=== PATIENT | male | born 1990 | race Caucasian/White ===

== ENCOUNTER 2016-10-23 14:36 | Inpatient (IN) ==
[2016-10-23] MEDS ORDERED: Naloxone 0.4 MG/ML INJ IVP ONE (14:38)
[2016-10-23] MEDS ORDERED: 0.9 % Sodium Chloride 1,000 ML IVC ONE (14:38)
[2016-10-23 14:58] LABS: Basophils % 0.7 %; Eosinophils # 0.1 K/mcL (0.0-0.6); Eosinophils % 1.7 %; Hematocrit 41.6 % (37.5-50.1); Hemoglobin 14.2 g/dL (12.9-16.9); Immature Granulocytes % 0.2 % (0-4); Lymphocytes % 34.3 %; Mean Corpuscular HGB Conc 34.1 g/dL (31.6-35.5); Mean Corpuscular Hemoglobin 31.9 pg (28.0-33.3); Mean Corpuscular Volume 93.5 fL (83.0-100.0); Mean Platelet Volume 9.9 fL (9.4-12.4); Monocytes # 0.6 K/mcL (0.0-1.3); Monocytes % 9.7 %; Neutrophils # 3.1 K/mcL (1.6-8.9); Platelet Count 190 K/mcL (140-400); Red Blood Count 4.45 M/mcL (4.19-5.50); Red Cell Distribution Width 12.6 % (11.5-14.5); Segmented Neutrophils % 53.4 %
[2016-10-23] MEDS ORDERED: Ammonia Inhalant AMPUL ONE (15:08)
[2016-10-23] MEDS ORDERED: *HR* Etomidate 20 MG/10 ML AMPUL IVP ONE (15:14)
[2016-10-23] MEDS ORDERED: *HR* Rocuronium Bromide 50 MG/5 ML VIAL IVP ONE (15:14)
[2016-10-23 15:20] LABS: Acetaminophen < 1.0 mcg/mL (10-30); Alanine Aminotransferase 26 Units/L (0-55); Albumin 3.8 g/dL (3.5-5.0); Albumin/Globulin Ratio 1.1 (1.1-2.2); Alkaline Phosphatase 56 Units/L (38-126); Aspartate Amino Transferase 28 Units/L (5-34); BUN/Creatinine Ratio 20 (6-26); Bilirubin,Direct 0.1 mg/dL (0.0-0.5); Bilirubin,Indirect 0.1 mg/dL (0.0-1.2); Bilirubin,Total 0.2 mg/dL (0.2-1.2); Blood Urea Nitrogen 14 mg/dL (8-26); Calcium 9.2 mg/dL (8.6-10.8); Carbon Dioxide 25 mEq/L (19-29); Chloride 105 mEq/L (98-109); Ethanol < 10 mg/dL (0-10); Globulin 3.6 g/dL (2.4-3.5); Glucose 97 mg/dL (70-99); Osmolality,Calculated 290 (280-300); Potassium 4.2 mEq/L (3.5-4.5); Salicylate < 5.0 mg/dL (15-30); Sodium 140 mEq/L (136-145); Total Protein 7.4 g/dL (6.0-8.3); eGFR For African Americans > 60 (> 60); eGFR For Non-African Americans > 60 (> 60)
[2016-10-23 16:29] LABS: Amphetamine Screen,Urine Negative ng/mL (Cutoff=1000); Barbiturate Screen,Urine Negative ng/mL (Cutoff=200); Benzodiazepines Screen,Urine Positive ng/mL (Cutoff=200); Cannabinoid Screen,Urine Negative ng/mL (Cutoff = 50); Cocaine Screen,Urine Negative ng/mL (Cutoff= 300); Opiate Screen,Urine Negative ng/mL (Cutoff=300); Phencyclidine Screen,Urine Negative ng/mL (Cutoff=25)
[2016-10-23 16:41] LABS: Bilirubin,Urine Negative (Negative); Blood,Urine Small (Negative); Clarity,Urine Clear (Clear); Color,Urine Yellow (Yellow); Glucose,Urine (UA) Normal (Normal); Ketones,Urine Negative (Negative); Leukocyte Esterase,Urine Negative (Negative); Nitrite,Urine Negative (Negative); Protein,Urine Negative (Neg-Trace); Specific Gravity,Urine 1.025 (1.010-1.025); Urobilinogen,Urine Normal (Normal)
[2016-10-23 16:42] LABS: Bacteria,Urine None Seen per hpf (None-Few); Hyaline Casts,Urine None Seen per lpf (None-Few); Squamous Epithelial Cell,Urine Moderate per lpf (None-Few); WBC,Urine 0-3 per hpf (0-3)
--- NOTE | 2016-10-23 17:06 | Emergency Department Note ---
Disposition Clinical Impression: Overdose Qualifiers: Encounter type: initial encounter Injury intent: undetermined intent Qualified Code(s): T50.904A - Poisoning by unspecified drugs, medicaments and biological substances, undetermined, initial encounter Disposition: Admitted As Inpatient Condition: Critical General Adult HPI - General Chief complaint: ED Overdose Stated complaint: OVERDOSE Time Seen by Provider: 10/23/16 14:38 Source: EMS Limitations: no limitations Nursing Notes Reviewed: Yes Vital Signs Reviewed: Yes - History of Present Illness HPI Narrative: This is a 18-year-old male with a history of neck pain who is on chronic pain control with Suboxone. He apparently today was found intoxicated, possibly ingested an unknown quantity of an unknown substance. On arrival he is found responsive to painful stimuli only, lethargic, appears intoxicated. No external signs of trauma. Pain Scale: 6 - Related Data Allergies Allergy/AdvReac Type Severity Reaction Status Date / Time No Known Allergies Allergy Verified 05/14/15 19:35 All systems ED: reviewed and negative except as stated. Past Medical History - Past Medical History Medical history: Reports: no medical history, migraine Surgical history: Reports: no surgical history Psychiatric history: Reports: anxiety, bipolar, depression - Social History Smoking Status: Current every day smoker Smokeless Tobacco Status: No Alcohol use: Reports: none Drug use: Reports: none Physical Exam Difficult to arouse alert to person Pupils are equal reactive to light, extraocular muscle movements are normal Mucous membranes are moist TMs are clear bilaterally Cardiovascular exam shows regular rate and rhythm there is no murmur, rub, gallop Pulmonary exam shows lungs clear and equal bilaterally there is good inspiratory effort Abdomen is soft and nontender Extremities are without clubbing, cyanosis, edema No focal neurological deficit - General Limitations: no limitations General appearance: alert Course Vital Signs Temperature 98.1 F 10/23/16 14:37 Pulse Rate 88 10/23/16 14:37 Respiratory Rate 18 10/23/16 14:37 Blood Pressure 119/84 10/23/16 14:37 O2 Sat by Pulse Oximetry 97 10/23/16 14:37 Temperature 98.1 F 10/23/16 14:37 Pulse Rate 91 10/23/16 16:48 Respiratory Rate 18 10/23/16 16:48 Blood Pressure 110/97 10/23/16 16:48 O2 Sat by Pulse Oximetry 99 10/23/16 16:48 Oxygen Delivery Oxygen Delivery Room Air Medical Decision Making - MDM Narrative Medical decision making narrative: EKG shows normal sinus rhythm, normal axis, normal intervals Patient appears to be polysubstance overdose. Responded slowly to Narcan administration. He is alert but intermittently somnolent and requires additional dosing of Narcan. Given his ongoing somnolence will admit to intensive care unit. Of note his family member was here and appeared intoxicated as well with subsequent arrest. Plan to admit to intensive care unit, discussed case with environmental health and safety leader as well as hospitalist team. - Medical Records Medical records reviewed: Yes I reviewed the patient's medical records. - Lab Data Lab results reviewed: Yes I reviewed the patient's lab results. Result diagrams: 10/23/16 14:51 10/23/16 14:51 Lab Results 10/23/16 10/23/16 10/23/16 Range/Units 14:51 14:51 15:50 WBC 5.8 (4.3-11.1) K/mcL RBC 4.45 (4.19-5.50) M/mcL Hgb 14.2 (12.9-16.9) g/dL Hct 41.6 (37.5-50.1) % MCV 93.5 (83.0-100.0) fL MCH 31.9 (28.0-33.3) pg MCHC 34.1 (31.6-35.5) g/dL RDW 12.6 (11.5-14.5) % Plt Count 190 (140-400) K/mcL MPV 9.9 (9.4-12.4) fL Immature Gran % 0.2 (0-4) % Seg Neutrophils % 53.4 % Lymphocytes % 34.3 % Monocytes % 9.7 % Eosinophils % 1.7 % Basophils % 0.7 % Neutrophils # 3.1 (1.6-8.9) K/mcL Lymphocytes # 2.0 (0.6-4.6) K/mcL Monocytes # 0.6 (0.0-1.3) K/mcL Eosinophils # 0.1 (0.0-0.6) K/mcL Basophils # 0.0 (0.0-0.2) K/mcL Sodium 140 (136-145) mEq/L Potassium 4.2 (3.5-4.5) mEq/L Chloride 105 (98-109) mEq/L Carbon Dioxide 25 (19-29) mEq/L BUN 14 (8-26) mg/dL Creatinine 0.70 L (0.72-1.25) mg/dL Est GFR ( Amer) > 60 (> 60) Est GFR (Non-Af Amer) > 60 (> 60) BUN/Creatinine Ratio 20 (6-26) Glucose 97 (70-99) mg/dL Calculated Osmolality 290 (280-300) Calcium 9.2 (8.6-10.8) mg/dL Total Bilirubin 0.2 (0.2-1.2) mg/dL Direct Bilirubin 0.1 (0.0-0.5) mg/dL Indirect Bilirubin 0.1 (0.0-1.2) mg/dL AST 28 (5-34) Units/L ALT 26 (0-55) Units/L Alkaline Phosphatase 56 (38-126) Units/L Serum Total Protein 7.4 (6.0-8.3) g/dL Albumin 3.8 (3.5-5.0) g/dL Globulin 3.6 H (2.4-3.5) g/dL Albumin/Globulin Ratio 1.1 (1.1-2.2) Urine Color (Yellow) Urine Clarity (Clear) Urine pH (5.0-8.0) pH Units Ur Specific [place] (1.010-1.025) Urine Protein (Neg-Trace) mg/dL Urine Glucose (UA) (Normal) mg/dL Urine Ketones (Negative) mg/dL Urine Blood (Negative) Urine Nitrite (Negative) Urine Bilirubin (Negative) Urine Urobilinogen (Normal) mg/dL Ur Leukocyte Esterase (Negative) Urine Microscopic RBC (0-3) per hpf Urine Microscopic WBC (0-3) per hpf Ur Squamous Epith Cells (None-Few) per lpf Urine Bacteria (None-Few) per hpf Hyaline Casts (None-Few) per lpf Salicylates < 5.0 L (15-30) mg/dL Urine Opiates Screen Negative (Hpljgv=224) ng/mL Acetaminophen < 1.0 L (10-30) mcg/mL Ur Barbiturates Screen Negative (Knarez=278) ng/mL Ur Phencyclidine Scrn Negative (Cutoff=25) ng/mL Ur Amphetamines Screen Negative (Eicwbs=2654) ng/mL U Benzodiazepines Scrn Positive H (Tmjxbn=866) ng/mL Urine Cocaine Screen Negative (Cutoff= 300) ng/mL U Marijuana (THC) Screen Negative (Cutoff = 50) ng/mL Ethyl Alcohol < 10 (0-10) mg/dL 10/23/16 Range/Units 16:07 WBC (4.3-11.1) K/mcL RBC (4.19-5.50) M/mcL Hgb (12.9-16.9) g/dL Hct (37.5-50.1) % MCV (83.0-100.0) fL MCH (28.0-33.3) pg MCHC (31.6-35.5) g/dL RDW (11.5-14.5) % Plt Count (140-400) K/mcL MPV (9.4-12.4) fL Immature Gran % (0-4) % Seg Neutrophils % % Lymphocytes % % Monocytes % % Eosinophils % % Basophils % % Neutrophils # (1.6-8.9) K/mcL Lymphocytes # (0.6-4.6) K/mcL Monocytes # (0.0-1.3) K/mcL Eosinophils # (0.0-0.6) K/mcL Basophils # (0.0-0.2) K/mcL Sodium (136-145) mEq/L Potassium (3.5-4.5) mEq/L Chloride (98-109) mEq/L Carbon Dioxide (19-29) mEq/L BUN (8-26) mg/dL Creatinine (0.72-1.25) mg/dL Est GFR ( Amer) (> 60) Est GFR (Non-Af Amer) (> 60) BUN/Creatinine Ratio (6-26) Glucose (70-99) mg/dL Calculated Osmolality (280-300) Calcium (8.6-10.8) mg/dL Total Bilirubin (0.2-1.2) mg/dL Direct Bilirubin (0.0-0.5) mg/dL Indirect Bilirubin (0.0-1.2) mg/dL AST (5-34) Units/L ALT (0-55) Units/L Alkaline Phosphatase (38-126) Units/L Serum Total Protein (6.0-8.3) g/dL Albumin (3.5-5.0) g/dL Globulin (2.4-3.5) g/dL Albumin/Globulin Ratio (1.1-2.2) Urine Color Yellow (Yellow) Urine Clarity Clear (Clear) Urine pH 6.0 (5.0-8.0) pH Units Ur Specific [place] 1.025 (1.010-1.025) Urine Protein Negative (Neg-Trace) mg/dL Urine Glucose (UA) Normal (Normal) mg/dL Urine Ketones Negative (Negative) mg/dL Urine Blood Small H (Negative) Urine Nitrite Negative (Negative) Urine Bilirubin Negative (Negative) Urine Urobilinogen Normal (Normal) mg/dL Ur Leukocyte Esterase Negative (Negative) Urine Microscopic RBC 5-15 H (0-3) per hpf Urine Microscopic WBC 0-3 (0-3) per hpf Ur Squamous Epith Cells Moderate H (None-Few) per lpf Urine Bacteria None Seen (None-Few) per hpf Hyaline Casts None Seen (None-Few) per lpf Salicylates (15-30) mg/dL Urine Opiates Screen (Uebwjf=770) ng/mL Acetaminophen (10-30) mcg/mL Ur Barbiturates Screen (Hubsdm=336) ng/mL Ur Phencyclidine Scrn (Cutoff=25) ng/mL Ur Amphetamines Screen (Ylqcku=6809) ng/mL U Benzodiazepines Scrn (Lzshhy=314) ng/mL Urine Cocaine Screen (Cutoff= 300) ng/mL U Marijuana (THC) Screen (Cutoff = 50) ng/mL Ethyl Alcohol (0-10) mg/dL Critical Care Time Critical Care Time: Yes Total Critical Care Time: 62 Attestation: I spent a total of 62 minutes providing for the acute care of this polysubstance overdose with respiratory difficulty. He required ongoing monitoring, critical care, had high potential for life-threatening decompensation and deterioration.
[2016-10-23] MEDS ORDERED: Naloxone 0.4 MG/ML INJ IVP PRN (17:22)
[2016-10-23] MEDS ORDERED: Ondansetron 4 MG/2 ML VIAL IVP PRN (17:22)
[2016-10-23] MEDS ORDERED: 0.9 % Sodium Chloride 1,000 ML IVC SCH (17:30)
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
[2016-10-23] MEDS: 0.9 % Sodium Chloride 1,000 ML IVC SCH ×2 (18:34→21:10)
[2016-10-23] MEDS ORDERED: *HR* Heparin 5,000 UNIT/ML VIAL SQ SCH (23:00)
[2016-10-24 03:07] VITALS: BP 121/79
--- NOTE | 2016-10-24 03:40 | Event Note ---
Date of Encounter: 10/24/16 Time of Encounter: 03:32 Called to see patient as he was leaving against medical advice (AMA). I spoke with patient, and he flat out denied any intent to hurt or kill himself. He states he took some drugs off the street last night with the intent to "get high ". He states he's better now, awake, hungry, and he's afraid he's going to withdraw if he doesn't get his Suboxone and other drugs he takes. I recommended he stay until daybreak and see child welfare social worker and dayteam prior to leaving. He states he's leaving no matter what. He denies any suicidal thoughts or plans. He was "just trying to get high". Pt was advised to stay and that if he left AMA, he risks poor nutrition, homelessness, repeat overdose , and . He voiced understanding and is leaving AMA.
--- NOTE | 2016-10-25 15:28 | Electrocardiograph Report ---
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
== END 2016-10-24 03:50 | disposition left against medical advice (07) | DRG 812 ==
LOC: EMEROO 14:36 → ICNU 14:36
PROVIDERS: ADMIT Internal Medicine; ATTEND Internal Medicine

== ENCOUNTER 2016-10-24 14:18 | Inpatient (IN) ==
[~2016-10-24 14:18] MED LIST: *HR* Etomidate 40 MG/20 ML VIAL IVP ONE; *HR* Rocuronium Bromide 100 MG/10 ML VIAL IVC ONE
[2016-10-24 14:51] LABS: Basophils % 0.5 %; Eosinophils # 0.1 K/mcL (0.0-0.6); Eosinophils % 1.9 %; Hematocrit 41.2 % (37.5-50.1); Hemoglobin 13.7 g/dL (12.9-16.9); Immature Granulocytes % 0.2 % (0-4); Lymphocytes # 1.7 K/mcL (0.6-4.6); Lymphocytes % 27.9 %; Mean Corpuscular HGB Conc 33.3 g/dL (31.6-35.5); Mean Corpuscular Volume 93.2 fL (83.0-100.0); Mean Platelet Volume 9.7 fL (9.4-12.4); Monocytes # 0.4 K/mcL (0.0-1.3); Monocytes % 7.2 %; Neutrophils # 3.7 K/mcL (1.6-8.9); Platelet Count 202 K/mcL (140-400); Red Blood Count 4.42 M/mcL (4.19-5.50); Red Cell Distribution Width 12.6 % (11.5-14.5); Segmented Neutrophils % 62.3 %
[2016-10-24] MEDS ORDERED: Naloxone 0.4 MG/ML INJ IVP ONE (14:51)
--- NOTE | 2016-10-24 14:58 | Emergency Department Note ---
Overdose - Lab Data Result diagrams: 10/24/16 14:45 10/24/16 14:45 Lab Results 10/24/16 10/24/16 10/24/16 Range/Units 14:45 14:45 15:23 WBC 5.9 (4.3-11.1) K/mcL RBC 4.42 (4.19-5.50) M/mcL Hgb 13.7 (12.9-16.9) g/dL Hct 41.2 (37.5-50.1) % MCV 93.2 (83.0-100.0) fL MCH 31.0 (28.0-33.3) pg MCHC 33.3 (31.6-35.5) g/dL RDW 12.6 (11.5-14.5) % Plt Count 202 (140-400) K/mcL MPV 9.7 (9.4-12.4) fL Immature Gran % 0.2 (0-4) % Seg Neutrophils % 62.3 % Lymphocytes % 27.9 % Monocytes % 7.2 % Eosinophils % 1.9 % Basophils % 0.5 % Neutrophils # 3.7 (1.6-8.9) K/mcL Lymphocytes # 1.7 (0.6-4.6) K/mcL Monocytes # 0.4 (0.0-1.3) K/mcL Eosinophils # 0.1 (0.0-0.6) K/mcL Basophils # 0.0 (0.0-0.2) K/mcL Sodium 139 (136-145) mEq/L Potassium 3.7 (3.5-4.5) mEq/L Chloride 105 (98-109) mEq/L Carbon Dioxide 24 (19-29) mEq/L BUN 10 (8-26) mg/dL Creatinine 0.74 (0.72-1.25) mg/dL Est GFR ( Amer) > 60 (> 60) Est GFR (Non-Af Amer) > 60 (> 60) BUN/Creatinine Ratio 14 (6-26) Glucose 116 H (70-99) mg/dL Calculated Osmolality 288 (280-300) Calcium 9.2 (8.6-10.8) mg/dL Total Bilirubin 0.1 L (0.2-1.2) mg/dL Direct Bilirubin 0.1 (0.0-0.5) mg/dL Indirect Bilirubin 0.0 (0.0-1.2) mg/dL AST 24 (5-34) Units/L ALT 25 (0-55) Units/L Alkaline Phosphatase 55 (38-126) Units/L Serum Total Protein 7.1 (6.0-8.3) g/dL Albumin 3.6 (3.5-5.0) g/dL Globulin 3.5 (2.4-3.5) g/dL Albumin/Globulin Ratio 1.0 L (1.1-2.2) Urine Color Yellow (Yellow) Urine Clarity Clear (Clear) Urine pH 6.5 (5.0-8.0) pH Units Ur Specific [place] 1.012 (1.010-1.025) Urine Protein Negative (Neg-Trace) mg/dL Urine Glucose (UA) Normal (Normal) mg/dL Urine Ketones Negative (Negative) mg/dL Urine Blood Small H (Negative) Urine Nitrite Negative (Negative) Urine Bilirubin Negative (Negative) Urine Urobilinogen Normal (Normal) mg/dL Ur Leukocyte Esterase Negative (Negative) Salicylates < 5.0 L (15-30) mg/dL Acetaminophen < 1.0 L (10-30) mcg/mL Ethyl Alcohol < 10 (0-10) mg/dL - EKG Data EKG attestation: Yes I reviewed and interpreted this EKG. EKG results narrative: Sinus tachycardia at 113. Normal axis and intervals. No ST elevation or depression. QTC 358. QRS 88. No change from 10/23/2016 other than rate. Overdose HPI - General Chief Complaint: ED Overdose Stated Complaint: drug overdose Time Seen by Provider: 10/24/16 14:20 Source: patient, EMS Mode of arrival: EMS Limitations: no limitations Nursing Notes Reviewed: Yes Vital Signs Reviewed: Yes - History of Present Illness HPI Narrative: 26M with hx of IVDA presents with altered mental status and apparent overdose from senior care. He was found somnolent in the street and brought in by police to senior care. When he arrived to senior care he was too somnolent to be incarcerated. He had a bottle Suboxone was missing approximately 5 tablets as well as a bottle of gabapentin that was missing approximately 40 tablets per EMS. This is in the context of an overdose for which she was admitted yesterday and discharged this morning from the hospital. Patient states that he only took one of his gabapentin tablets and one of his Suboxone tablets. No signs of trauma per EMS. No further history available. Pt Subjective Complaint: accidental overdose - Related Data Home Medications Medication Instructions Recorded Confirmed Buprenorphine HCl/Naloxone HCl 1 each SL BID 10/23/16 10/24/16 [Suboxone 8 mg-2 mg Sl Film] Gabapentin [Gabapentin] 800 mg PO TID 10/23/16 10/24/16 LORazepam [Lorazepam] 2 mg PO TID PRN 10/23/16 10/24/16 Venlafaxine XR (24 HR) [Effexor XR] 150 mg PO DAILY 10/23/16 10/24/16 Allergies Allergy/AdvReac Type Severity Reaction Status Date / Time No Known Allergies Allergy Verified 05/14/15 19:35 All systems ED: reviewed and negative except as stated. Past Medical History - Past Medical History Attestation: Yes The following information was validated with the patient. Source: patient Medical history: Reports: migraine Surgical history: Reports: no surgical history Psychiatric history: Reports: anxiety, bipolar, depression, prior suicide attempt - Social History Smoking Status: Current every day smoker Smokeless Tobacco Status: No Alcohol use: Reports: none Drug use: Reports: prescription drug abuse Physical Exam - Head Head exam: atraumatic, normocephalic, normal inspection - Eye Eye exam: Present: normal appearance, PERRL, EOMI - ENT ENT exam: normal exam, normal oropharynx, mucous membranes moist - Neck Neck exam: Present: normal inspection, full ROM, trachea midline - Chest Chest inspection: Present: normal inspection, symmetric chest wall rise - Respiratory Respiratory exam: Clear to auscultation bilaterally without wheezes rales or rhonchi Cardiovascular Cardiovascular exam: Present: regular rate, normal rhythm, normal heart sounds - Abdominal Exam Abdominal exam: Present: soft, Non-Tender. Absent: tenderness, distention, guarding, rebound, rigidity - Extremities Exam Extremities exam: Present: normal inspection, full ROM - Expanded Lower Extremity Exam Hip/Pelvis exam: Present: normal inspection, full ROM - Back Exam Back exam: Present: normal inspection, full ROM. Absent: tenderness, CVA tenderness (R), CVA tenderness (L) - Neurological Exam He is somnolent, but easy to arouse. Oriented 3. Cranial nerves II through XII equal and intact. - Psychiatric Psychiatric exam: Present: normal affect, normal mood - Skin Skin exam: Present: warm, dry, intact, normal color - General Limitations: altered mental status General appearance: appears intoxicated Course - Reevaluation(s) Reevaluation #1: Narcan initially administered for worsening somnolence bordering on obtundation with partial improvement in symptoms. After approximately 45 minutes, this worsened, and patient had no gag reflex on exam causing patient to receive another [address] scan of his head and C-spine were negative. Chest x -ray negative. Labs reviewed. The patient is now awake, but still altered. He is asking to leave at this time. He is not competent to make that decision at this time given that he does not know how he got here or what medication he took, or that he may if he leaves. Fallis slip on the chart. Time: 15:58 Reevaluation #2: Patient expresses desire to kill himself to the nurse at this time. Accepted by machine buffer Dr. Chandler for further management. Time: 16:04 Vital Signs Temperature 100.2 F H 10/24/16 14:21 Pulse Rate 65 10/24/16 14:21 Respiratory Rate 20 10/24/16 14:21 Blood Pressure 119/70 10/24/16 14:21 O2 Sat by Pulse Oximetry 96 10/24/16 14:21 Temperature 100.2 F H 10/24/16 14:21 Pulse Rate 93 10/24/16 15:49 Respiratory Rate 18 10/24/16 15:49 Blood Pressure 116/81 10/24/16 15:49 O2 Sat by Pulse Oximetry 98 10/24/16 15:49 Oxygen Delivery Oxygen Delivery Nasal Cannula Disposition Clinical Impression: Overdose Qualifiers: Encounter type: initial encounter Injury intent: undetermined intent Qualified Code(s): T50.904A - Poisoning by unspecified drugs, medicaments and biological substances, undetermined, initial encounter Disposition: Admitted As Inpatient Condition: Fair Referrals: NO,PCP [Primary Care Provider] - Forms: ED Satisfaction Letter Time of Disposition: 15:58
[2016-10-24 15:05] LABS: Alanine Aminotransferase 25 Units/L (0-55); Albumin 3.6 g/dL (3.5-5.0); Alkaline Phosphatase 55 Units/L (38-126); Aspartate Amino Transferase 24 Units/L (5-34); BUN/Creatinine Ratio 14 (6-26); Bilirubin,Direct 0.1 mg/dL (0.0-0.5); Bilirubin,Total 0.1 mg/dL (0.2-1.2); Blood Urea Nitrogen 10 mg/dL (8-26); Calcium 9.2 mg/dL (8.6-10.8); Carbon Dioxide 24 mEq/L (19-29); Chloride 105 mEq/L (98-109); Globulin 3.5 g/dL (2.4-3.5); Glucose 116 mg/dL (70-99); Osmolality,Calculated 288 (280-300); Potassium 3.7 mEq/L (3.5-4.5); Sodium 139 mEq/L (136-145); Total Protein 7.1 g/dL (6.0-8.3); eGFR For African Americans > 60 (> 60); eGFR For Non-African Americans > 60 (> 60)
[2016-10-24 15:06] LABS: Acetaminophen < 1.0 mcg/mL (10-30); Ethanol < 10 mg/dL (0-10); Salicylate < 5.0 mg/dL (15-30)
--- NOTE | 2016-10-24 15:44 | Emergency Department Note ---
START Narrative - START START: I examined this patient and my medical decision-making was reviewed with the MOLD SANDER/PA/Advanced Practice Nurse/Resident Physician. I agree with the documented findings, disposition and treatment plan as described except to the extent set forth below. ED attending note: Patient seen with emergency medicine resident Dr. Brito. Please see a copy of his note for details of the H&P, evaluation, management and disposition of this patient. We independently had [id number] contact with the patient Briefly: 18-year-old male via EMS potential overdose. Patient was just discharged AMA yesterday from the ICU for similar self induced overdose on his Suboxone and EpiPen 10. Patient is slightly somnolent hemodynamically stable EKG shows no acute changes. ED workup is negative so far. Discussed case with the hospitalist Dr. Sanderson requested ICU admission. Awaiting for the air drier call back. Head CT was otherwise read as negative. Provided 45 minutes of critical care service this patient patient admitted in stable condition.
[2016-10-24 15:53] LABS: Bilirubin,Urine Negative (Negative); Blood,Urine Small (Negative); Clarity,Urine Clear (Clear); Color,Urine Yellow (Yellow); Glucose,Urine (UA) Normal (Normal); Ketones,Urine Negative (Negative); Leukocyte Esterase,Urine Negative (Negative); Nitrite,Urine Negative (Negative); PH,Urine 6.5 pH Units (5.0-8.0); Protein,Urine Negative (Neg-Trace); Specific Gravity,Urine 1.012 (1.010-1.025); Urobilinogen,Urine Normal (Normal)
[2016-10-24 15:59] LABS: Amphetamine Screen,Urine Negative ng/mL (Cutoff=1000); Barbiturate Screen,Urine Negative ng/mL (Cutoff=200); Benzodiazepines Screen,Urine Positive ng/mL (Cutoff=200); Cannabinoid Screen,Urine Negative ng/mL (Cutoff = 50); Cocaine Screen,Urine Negative ng/mL (Cutoff= 300); Opiate Screen,Urine Negative ng/mL (Cutoff=300); Phencyclidine Screen,Urine Negative ng/mL (Cutoff=25)
[2016-10-24 16:13] LABS: Squamous Epithelial Cell,Urine Few per lpf (None-Few)
[2016-10-24 16:14] LABS: Bacteria,Urine Few per hpf (None-Few); WBC,Urine 0-3 per hpf (0-3)
--- NOTE | 2016-10-24 16:27 | Emergency Department Note ---
Overdose - Lab Data Result diagrams: 10/24/16 14:45 10/24/16 14:45 Lab Results 10/24/16 10/24/16 10/24/16 Range/Units 14:45 14:45 15:23 WBC 5.9 (4.3-11.1) K/mcL RBC 4.42 (4.19-5.50) M/mcL Hgb 13.7 (12.9-16.9) g/dL Hct 41.2 (37.5-50.1) % MCV 93.2 (83.0-100.0) fL MCH 31.0 (28.0-33.3) pg MCHC 33.3 (31.6-35.5) g/dL RDW 12.6 (11.5-14.5) % Plt Count 202 (140-400) K/mcL MPV 9.7 (9.4-12.4) fL Immature Gran % 0.2 (0-4) % Seg Neutrophils % 62.3 % Lymphocytes % 27.9 % Monocytes % 7.2 % Eosinophils % 1.9 % Basophils % 0.5 % Neutrophils # 3.7 (1.6-8.9) K/mcL Lymphocytes # 1.7 (0.6-4.6) K/mcL Monocytes # 0.4 (0.0-1.3) K/mcL Eosinophils # 0.1 (0.0-0.6) K/mcL Basophils # 0.0 (0.0-0.2) K/mcL Sodium 139 (136-145) mEq/L Potassium 3.7 (3.5-4.5) mEq/L Chloride 105 (98-109) mEq/L Carbon Dioxide 24 (19-29) mEq/L BUN 10 (8-26) mg/dL Creatinine 0.74 (0.72-1.25) mg/dL Est GFR ( Amer) > 60 (> 60) Est GFR (Non-Af Amer) > 60 (> 60) BUN/Creatinine Ratio 14 (6-26) Glucose 116 H (70-99) mg/dL Calculated Osmolality 288 (280-300) Calcium 9.2 (8.6-10.8) mg/dL Total Bilirubin 0.1 L (0.2-1.2) mg/dL Direct Bilirubin 0.1 (0.0-0.5) mg/dL Indirect Bilirubin 0.0 (0.0-1.2) mg/dL AST 24 (5-34) Units/L ALT 25 (0-55) Units/L Alkaline Phosphatase 55 (38-126) Units/L Serum Total Protein 7.1 (6.0-8.3) g/dL Albumin 3.6 (3.5-5.0) g/dL Globulin 3.5 (2.4-3.5) g/dL Albumin/Globulin Ratio 1.0 L (1.1-2.2) Urine Color Yellow (Yellow) Urine Clarity Clear (Clear) Urine pH 6.5 (5.0-8.0) pH Units Ur Specific [place] 1.012 (1.010-1.025) Urine Protein Negative (Neg-Trace) mg/dL Urine Glucose (UA) Normal (Normal) mg/dL Urine Ketones Negative (Negative) mg/dL Urine Blood Small H (Negative) Urine Nitrite Negative (Negative) Urine Bilirubin Negative (Negative) Urine Urobilinogen Normal (Normal) mg/dL Ur Leukocyte Esterase Negative (Negative) Urine Microscopic RBC 3-5 H (0-3) per hpf Urine Microscopic WBC 0-3 (0-3) per hpf Ur Squamous Epith Cells Few (None-Few) per lpf Urine Bacteria Few (None-Few) per hpf Salicylates < 5.0 L (15-30) mg/dL Urine Opiates Screen (Zlelqv=163) ng/mL Acetaminophen < 1.0 L (10-30) mcg/mL Ur Barbiturates Screen (Kxkwfw=015) ng/mL Ur Phencyclidine Scrn (Cutoff=25) ng/mL Ur Amphetamines Screen (Xflnrg=5928) ng/mL U Benzodiazepines Scrn (Azsudg=453) ng/mL Urine Cocaine Screen (Cutoff= 300) ng/mL U Marijuana (THC) Screen (Cutoff = 50) ng/mL Ethyl Alcohol < 10 (0-10) mg/dL 10/24/16 Range/Units 15:23 WBC (4.3-11.1) K/mcL RBC (4.19-5.50) M/mcL Hgb (12.9-16.9) g/dL Hct (37.5-50.1) % MCV (83.0-100.0) fL MCH (28.0-33.3) pg MCHC (31.6-35.5) g/dL RDW (11.5-14.5) % Plt Count (140-400) K/mcL MPV (9.4-12.4) fL Immature Gran % (0-4) % Seg Neutrophils % % Lymphocytes % % Monocytes % % Eosinophils % % Basophils % % Neutrophils # (1.6-8.9) K/mcL Lymphocytes # (0.6-4.6) K/mcL Monocytes # (0.0-1.3) K/mcL Eosinophils # (0.0-0.6) K/mcL Basophils # (0.0-0.2) K/mcL Sodium (136-145) mEq/L Potassium (3.5-4.5) mEq/L Chloride (98-109) mEq/L Carbon Dioxide (19-29) mEq/L BUN (8-26) mg/dL Creatinine (0.72-1.25) mg/dL Est GFR ( Amer) (> 60) Est GFR (Non-Af Amer) (> 60) BUN/Creatinine Ratio (6-26) Glucose (70-99) mg/dL Calculated Osmolality (280-300) Calcium (8.6-10.8) mg/dL Total Bilirubin (0.2-1.2) mg/dL Direct Bilirubin (0.0-0.5) mg/dL Indirect Bilirubin (0.0-1.2) mg/dL AST (5-34) Units/L ALT (0-55) Units/L Alkaline Phosphatase (38-126) Units/L Serum Total Protein (6.0-8.3) g/dL Albumin (3.5-5.0) g/dL Globulin (2.4-3.5) g/dL Albumin/Globulin Ratio (1.1-2.2) Urine Color (Yellow) Urine Clarity (Clear) Urine pH (5.0-8.0) pH Units Ur Specific [place] (1.010-1.025) Urine Protein (Neg-Trace) mg/dL Urine Glucose (UA) (Normal) mg/dL Urine Ketones (Negative) mg/dL Urine Blood (Negative) Urine Nitrite (Negative) Urine Bilirubin (Negative) Urine Urobilinogen (Normal) mg/dL Ur Leukocyte Esterase (Negative) Urine Microscopic RBC (0-3) per hpf Urine Microscopic WBC (0-3) per hpf Ur Squamous Epith Cells (None-Few) per lpf Urine Bacteria (None-Few) per hpf Salicylates (15-30) mg/dL Urine Opiates Screen Negative (Vaptbl=770) ng/mL Acetaminophen (10-30) mcg/mL Ur Barbiturates Screen Negative (Izvnea=230) ng/mL Ur Phencyclidine Scrn Negative (Cutoff=25) ng/mL Ur Amphetamines Screen Negative (Edpqqu=6299) ng/mL U Benzodiazepines Scrn Positive H (Zfszyc=891) ng/mL Urine Cocaine Screen Negative (Cutoff= 300) ng/mL U Marijuana (THC) Screen Negative (Cutoff = 50) ng/mL Ethyl Alcohol (0-10) mg/dL Overdose HPI - General Chief Complaint: ED Overdose Stated Complaint: drug overdose Time Seen by Provider: 10/24/16 14:20 Source: patient, EMS Mode of arrival: EMS Limitations: altered mental status - Related Data Home Medications Medication Instructions Recorded Confirmed Buprenorphine HCl/Naloxone HCl 1 each SL BID 10/23/16 10/24/16 [Suboxone 8 mg-2 mg Sl Film] Gabapentin [Gabapentin] 800 mg PO TID 10/23/16 10/24/16 LORazepam [Lorazepam] 2 mg PO TID PRN 10/23/16 10/24/16 Venlafaxine XR (24 HR) [Effexor XR] 150 mg PO DAILY 10/23/16 10/24/16 Allergies Allergy/AdvReac Type Severity Reaction Status Date / Time No Known Allergies Allergy Verified 05/14/15 19:35 Past Medical History - Past Medical History Medical history: Reports: migraine Surgical history: Reports: no surgical history Psychiatric history: Reports: anxiety, bipolar, depression, prior suicide attempt - Social History Smoking Status: Current every day smoker Smokeless Tobacco Status: No Alcohol use: Reports: none Drug use: Reports: prescription drug abuse Physical Exam - General Limitations: altered mental status General appearance: appears intoxicated Course - Reevaluation(s) Reevaluation #1: This note is for an addendum. The patient was initially accepted by Dr. Chandler , but he came to evaluate the patient and found the patient to be more awake. He felt that the patient would be more appropriate for the hospitalist service. Hospitalist Dr. Sanderson does accept the patient, but wishes the patient to be in the ICU for better nursing monitoring. Time: 16:27 Vital Signs Temperature 100.2 F H 10/24/16 14:21 Pulse Rate 65 10/24/16 14:21 Respiratory Rate 20 10/24/16 14:21 Blood Pressure 119/70 10/24/16 14:21 O2 Sat by Pulse Oximetry 96 10/24/16 14:21 Temperature 100.2 F H 10/24/16 14:21 Pulse Rate 93 10/24/16 15:49 Respiratory Rate 18 10/24/16 15:49 Blood Pressure 116/81 10/24/16 15:49 O2 Sat by Pulse Oximetry 98 10/24/16 15:49 Oxygen Delivery Oxygen Delivery Nasal Cannula Disposition Clinical Impression: Overdose Qualifiers: Encounter type: initial encounter Injury intent: undetermined intent Qualified Code(s): T50.904A - Poisoning by unspecified drugs, medicaments and biological substances, undetermined, initial encounter Disposition: Admitted As Inpatient Condition: Fair Referrals: NO,PCP [Primary Care Provider] - Forms: ED Satisfaction Letter
[2016-10-24] MEDS ORDERED: *HR* FentaNYL (PF) 100 MCG/2 ML VIAL ONE (17:03)
[2016-10-24] MEDS ORDERED: Propofol 500 MG/50 ML INFUS..BTL ONE (17:14)
--- NOTE | 2016-10-24 17:19 | Emergency Department Note ---
Overdose - Lab Data Result diagrams: 10/24/16 14:45 10/24/16 14:45 Lab Results 10/24/16 10/24/16 10/24/16 Range/Units 14:45 14:45 15:23 WBC 5.9 (4.3-11.1) K/mcL RBC 4.42 (4.19-5.50) M/mcL Hgb 13.7 (12.9-16.9) g/dL Hct 41.2 (37.5-50.1) % MCV 93.2 (83.0-100.0) fL MCH 31.0 (28.0-33.3) pg MCHC 33.3 (31.6-35.5) g/dL RDW 12.6 (11.5-14.5) % Plt Count 202 (140-400) K/mcL MPV 9.7 (9.4-12.4) fL Immature Gran % 0.2 (0-4) % Seg Neutrophils % 62.3 % Lymphocytes % 27.9 % Monocytes % 7.2 % Eosinophils % 1.9 % Basophils % 0.5 % Neutrophils # 3.7 (1.6-8.9) K/mcL Lymphocytes # 1.7 (0.6-4.6) K/mcL Monocytes # 0.4 (0.0-1.3) K/mcL Eosinophils # 0.1 (0.0-0.6) K/mcL Basophils # 0.0 (0.0-0.2) K/mcL Sodium 139 (136-145) mEq/L Potassium 3.7 (3.5-4.5) mEq/L Chloride 105 (98-109) mEq/L Carbon Dioxide 24 (19-29) mEq/L BUN 10 (8-26) mg/dL Creatinine 0.74 (0.72-1.25) mg/dL Est GFR ( Amer) > 60 (> 60) Est GFR (Non-Af Amer) > 60 (> 60) BUN/Creatinine Ratio 14 (6-26) Glucose 116 H (70-99) mg/dL Calculated Osmolality 288 (280-300) Calcium 9.2 (8.6-10.8) mg/dL Total Bilirubin 0.1 L (0.2-1.2) mg/dL Direct Bilirubin 0.1 (0.0-0.5) mg/dL Indirect Bilirubin 0.0 (0.0-1.2) mg/dL AST 24 (5-34) Units/L ALT 25 (0-55) Units/L Alkaline Phosphatase 55 (38-126) Units/L Serum Total Protein 7.1 (6.0-8.3) g/dL Albumin 3.6 (3.5-5.0) g/dL Globulin 3.5 (2.4-3.5) g/dL Albumin/Globulin Ratio 1.0 L (1.1-2.2) Urine Color Yellow (Yellow) Urine Clarity Clear (Clear) Urine pH 6.5 (5.0-8.0) pH Units Ur Specific [place] 1.012 (1.010-1.025) Urine Protein Negative (Neg-Trace) mg/dL Urine Glucose (UA) Normal (Normal) mg/dL Urine Ketones Negative (Negative) mg/dL Urine Blood Small H (Negative) Urine Nitrite Negative (Negative) Urine Bilirubin Negative (Negative) Urine Urobilinogen Normal (Normal) mg/dL Ur Leukocyte Esterase Negative (Negative) Urine Microscopic RBC 3-5 H (0-3) per hpf Urine Microscopic WBC 0-3 (0-3) per hpf Ur Squamous Epith Cells Few (None-Few) per lpf Urine Bacteria Few (None-Few) per hpf Salicylates < 5.0 L (15-30) mg/dL Urine Opiates Screen (Hkilki=914) ng/mL Acetaminophen < 1.0 L (10-30) mcg/mL Ur Barbiturates Screen (Zaxpxy=112) ng/mL Ur Phencyclidine Scrn (Cutoff=25) ng/mL Ur Amphetamines Screen (Ftbtsw=6324) ng/mL U Benzodiazepines Scrn (Xxrpdi=550) ng/mL Urine Cocaine Screen (Cutoff= 300) ng/mL U Marijuana (THC) Screen (Cutoff = 50) ng/mL Ethyl Alcohol < 10 (0-10) mg/dL 10/24/16 Range/Units 15:23 WBC (4.3-11.1) K/mcL RBC (4.19-5.50) M/mcL Hgb (12.9-16.9) g/dL Hct (37.5-50.1) % MCV (83.0-100.0) fL MCH (28.0-33.3) pg MCHC (31.6-35.5) g/dL RDW (11.5-14.5) % Plt Count (140-400) K/mcL MPV (9.4-12.4) fL Immature Gran % (0-4) % Seg Neutrophils % % Lymphocytes % % Monocytes % % Eosinophils % % Basophils % % Neutrophils # (1.6-8.9) K/mcL Lymphocytes # (0.6-4.6) K/mcL Monocytes # (0.0-1.3) K/mcL Eosinophils # (0.0-0.6) K/mcL Basophils # (0.0-0.2) K/mcL Sodium (136-145) mEq/L Potassium (3.5-4.5) mEq/L Chloride (98-109) mEq/L Carbon Dioxide (19-29) mEq/L BUN (8-26) mg/dL Creatinine (0.72-1.25) mg/dL Est GFR ( Amer) (> 60) Est GFR (Non-Af Amer) (> 60) BUN/Creatinine Ratio (6-26) Glucose (70-99) mg/dL Calculated Osmolality (280-300) Calcium (8.6-10.8) mg/dL Total Bilirubin (0.2-1.2) mg/dL Direct Bilirubin (0.0-0.5) mg/dL Indirect Bilirubin (0.0-1.2) mg/dL AST (5-34) Units/L ALT (0-55) Units/L Alkaline Phosphatase (38-126) Units/L Serum Total Protein (6.0-8.3) g/dL Albumin (3.5-5.0) g/dL Globulin (2.4-3.5) g/dL Albumin/Globulin Ratio (1.1-2.2) Urine Color (Yellow) Urine Clarity (Clear) Urine pH (5.0-8.0) pH Units Ur Specific [place] (1.010-1.025) Urine Protein (Neg-Trace) mg/dL Urine Glucose (UA) (Normal) mg/dL Urine Ketones (Negative) mg/dL Urine Blood (Negative) Urine Nitrite (Negative) Urine Bilirubin (Negative) Urine Urobilinogen (Normal) mg/dL Ur Leukocyte Esterase (Negative) Urine Microscopic RBC (0-3) per hpf Urine Microscopic WBC (0-3) per hpf Ur Squamous Epith Cells (None-Few) per lpf Urine Bacteria (None-Few) per hpf Salicylates (15-30) mg/dL Urine Opiates Screen Negative (Miyuzv=985) ng/mL Acetaminophen (10-30) mcg/mL Ur Barbiturates Screen Negative (Bnbkmf=541) ng/mL Ur Phencyclidine Scrn Negative (Cutoff=25) ng/mL Ur Amphetamines Screen Negative (Tvigjd=3146) ng/mL U Benzodiazepines Scrn Positive H (Eujxld=814) ng/mL Urine Cocaine Screen Negative (Cutoff= 300) ng/mL U Marijuana (THC) Screen Negative (Cutoff = 50) ng/mL Ethyl Alcohol (0-10) mg/dL Overdose HPI - General Chief Complaint: ED Overdose Stated Complaint: drug overdose Time Seen by Provider: 10/24/16 14:20 Source: patient, EMS Mode of arrival: EMS Limitations: altered mental status - Related Data Home Medications Medication Instructions Recorded Confirmed Buprenorphine HCl/Naloxone HCl 1 each SL BID 10/23/16 10/24/16 [Suboxone 8 mg-2 mg Sl Film] Gabapentin [Gabapentin] 800 mg PO TID 10/23/16 10/24/16 LORazepam [Lorazepam] 2 mg PO TID PRN 10/23/16 10/24/16 Venlafaxine XR (24 HR) [Effexor XR] 150 mg PO DAILY 10/23/16 10/24/16 Allergies Allergy/AdvReac Type Severity Reaction Status Date / Time No Known Allergies Allergy Verified 05/14/15 19:35 Past Medical History - Past Medical History Medical history: Reports: migraine Surgical history: Reports: no surgical history Psychiatric history: Reports: anxiety, bipolar, depression, prior suicide attempt - Social History Smoking Status: Current every day smoker Smokeless Tobacco Status: No Alcohol use: Reports: none Drug use: Reports: prescription drug abuse Physical Exam - General Limitations: altered mental status General appearance: appears intoxicated Course - Reevaluation(s) Reevaluation #1: Note is for addendum. Patient was evaluated by the hospitalist who would like intubation at this time. This is reasonable as the patient's mental status has again worsened and did not significantly improve after Narcan administration. Patient was intubated by Dr. Khadar hciu. Chest x-ray is pending. Time: 17:18 Vital Signs Temperature 100.2 F H 10/24/16 14:21 Pulse Rate 65 10/24/16 14:21 Respiratory Rate 20 10/24/16 14:21 Blood Pressure 119/70 10/24/16 14:21 O2 Sat by Pulse Oximetry 96 10/24/16 14:21 Temperature 100.2 F H 10/24/16 14:21 Pulse Rate 93 10/24/16 15:49 Respiratory Rate 18 10/24/16 15:49 Blood Pressure 116/81 10/24/16 15:49 O2 Sat by Pulse Oximetry 98 10/24/16 15:49 Oxygen Delivery Oxygen Delivery Nasal Cannula Disposition Clinical Impression: Overdose Qualifiers: Encounter type: initial encounter Injury intent: undetermined intent Qualified Code(s): T50.904A - Poisoning by unspecified drugs, medicaments and biological substances, undetermined, initial encounter Disposition: Admitted As Inpatient Condition: Fair
--- NOTE | 2016-10-24 17:21 | Emergency Department Note ---
Overdose - MDM Narrative Medical decision making narrative: This is a procedure note for intubation for patient that has a drug overdose and is unable to maintain his airway - Lab Data Result diagrams: 10/24/16 14:45 10/24/16 14:45 Lab Results 10/24/16 10/24/16 10/24/16 Range/Units 14:45 14:45 15:23 WBC 5.9 (4.3-11.1) K/mcL RBC 4.42 (4.19-5.50) M/mcL Hgb 13.7 (12.9-16.9) g/dL Hct 41.2 (37.5-50.1) % MCV 93.2 (83.0-100.0) fL MCH 31.0 (28.0-33.3) pg MCHC 33.3 (31.6-35.5) g/dL RDW 12.6 (11.5-14.5) % Plt Count 202 (140-400) K/mcL MPV 9.7 (9.4-12.4) fL Immature Gran % 0.2 (0-4) % Seg Neutrophils % 62.3 % Lymphocytes % 27.9 % Monocytes % 7.2 % Eosinophils % 1.9 % Basophils % 0.5 % Neutrophils # 3.7 (1.6-8.9) K/mcL Lymphocytes # 1.7 (0.6-4.6) K/mcL Monocytes # 0.4 (0.0-1.3) K/mcL Eosinophils # 0.1 (0.0-0.6) K/mcL Basophils # 0.0 (0.0-0.2) K/mcL Sodium 139 (136-145) mEq/L Potassium 3.7 (3.5-4.5) mEq/L Chloride 105 (98-109) mEq/L Carbon Dioxide 24 (19-29) mEq/L BUN 10 (8-26) mg/dL Creatinine 0.74 (0.72-1.25) mg/dL Est GFR ( Amer) > 60 (> 60) Est GFR (Non-Af Amer) > 60 (> 60) BUN/Creatinine Ratio 14 (6-26) Glucose 116 H (70-99) mg/dL Calculated Osmolality 288 (280-300) Calcium 9.2 (8.6-10.8) mg/dL Total Bilirubin 0.1 L (0.2-1.2) mg/dL Direct Bilirubin 0.1 (0.0-0.5) mg/dL Indirect Bilirubin 0.0 (0.0-1.2) mg/dL AST 24 (5-34) Units/L ALT 25 (0-55) Units/L Alkaline Phosphatase 55 (38-126) Units/L Serum Total Protein 7.1 (6.0-8.3) g/dL Albumin 3.6 (3.5-5.0) g/dL Globulin 3.5 (2.4-3.5) g/dL Albumin/Globulin Ratio 1.0 L (1.1-2.2) Urine Color Yellow (Yellow) Urine Clarity Clear (Clear) Urine pH 6.5 (5.0-8.0) pH Units Ur Specific [place] 1.012 (1.010-1.025) Urine Protein Negative (Neg-Trace) mg/dL Urine Glucose (UA) Normal (Normal) mg/dL Urine Ketones Negative (Negative) mg/dL Urine Blood Small H (Negative) Urine Nitrite Negative (Negative) Urine Bilirubin Negative (Negative) Urine Urobilinogen Normal (Normal) mg/dL Ur Leukocyte Esterase Negative (Negative) Urine Microscopic RBC 3-5 H (0-3) per hpf Urine Microscopic WBC 0-3 (0-3) per hpf Ur Squamous Epith Cells Few (None-Few) per lpf Urine Bacteria Few (None-Few) per hpf Salicylates < 5.0 L (15-30) mg/dL Urine Opiates Screen (Hnnpej=769) ng/mL Acetaminophen < 1.0 L (10-30) mcg/mL Ur Barbiturates Screen (Myqnlb=143) ng/mL Ur Phencyclidine Scrn (Cutoff=25) ng/mL Ur Amphetamines Screen (Ieiagi=9095) ng/mL U Benzodiazepines Scrn (Xjizbk=590) ng/mL Urine Cocaine Screen (Cutoff= 300) ng/mL U Marijuana (THC) Screen (Cutoff = 50) ng/mL Ethyl Alcohol < 10 (0-10) mg/dL 10/24/16 Range/Units 15:23 WBC (4.3-11.1) K/mcL RBC (4.19-5.50) M/mcL Hgb (12.9-16.9) g/dL Hct (37.5-50.1) % MCV (83.0-100.0) fL MCH (28.0-33.3) pg MCHC (31.6-35.5) g/dL RDW (11.5-14.5) % Plt Count (140-400) K/mcL MPV (9.4-12.4) fL Immature Gran % (0-4) % Seg Neutrophils % % Lymphocytes % % Monocytes % % Eosinophils % % Basophils % % Neutrophils # (1.6-8.9) K/mcL Lymphocytes # (0.6-4.6) K/mcL Monocytes # (0.0-1.3) K/mcL Eosinophils # (0.0-0.6) K/mcL Basophils # (0.0-0.2) K/mcL Sodium (136-145) mEq/L Potassium (3.5-4.5) mEq/L Chloride (98-109) mEq/L Carbon Dioxide (19-29) mEq/L BUN (8-26) mg/dL Creatinine (0.72-1.25) mg/dL Est GFR ( Amer) (> 60) Est GFR (Non-Af Amer) (> 60) BUN/Creatinine Ratio (6-26) Glucose (70-99) mg/dL Calculated Osmolality (280-300) Calcium (8.6-10.8) mg/dL Total Bilirubin (0.2-1.2) mg/dL Direct Bilirubin (0.0-0.5) mg/dL Indirect Bilirubin (0.0-1.2) mg/dL AST (5-34) Units/L ALT (0-55) Units/L Alkaline Phosphatase (38-126) Units/L Serum Total Protein (6.0-8.3) g/dL Albumin (3.5-5.0) g/dL Globulin (2.4-3.5) g/dL Albumin/Globulin Ratio (1.1-2.2) Urine Color (Yellow) Urine Clarity (Clear) Urine pH (5.0-8.0) pH Units Ur Specific [place] (1.010-1.025) Urine Protein (Neg-Trace) mg/dL Urine Glucose (UA) (Normal) mg/dL Urine Ketones (Negative) mg/dL Urine Blood (Negative) Urine Nitrite (Negative) Urine Bilirubin (Negative) Urine Urobilinogen (Normal) mg/dL Ur Leukocyte Esterase (Negative) Urine Microscopic RBC (0-3) per hpf Urine Microscopic WBC (0-3) per hpf Ur Squamous Epith Cells (None-Few) per lpf Urine Bacteria (None-Few) per hpf Salicylates (15-30) mg/dL Urine Opiates Screen Negative (Cuvdmi=088) ng/mL Acetaminophen (10-30) mcg/mL Ur Barbiturates Screen Negative (Zihfdm=334) ng/mL Ur Phencyclidine Scrn Negative (Cutoff=25) ng/mL Ur Amphetamines Screen Negative (Okqhmx=2218) ng/mL U Benzodiazepines Scrn Positive H (Lkkyoo=596) ng/mL Urine Cocaine Screen Negative (Cutoff= 300) ng/mL U Marijuana (THC) Screen Negative (Cutoff = 50) ng/mL Ethyl Alcohol (0-10) mg/dL Overdose HPI - General Chief Complaint: ED Overdose Stated Complaint: drug overdose Time Seen by Provider: 10/24/16 14:20 Source: patient, EMS Mode of arrival: EMS Limitations: altered mental status Nursing Notes Reviewed: Yes Vital Signs Reviewed: Yes - History of Present Illness HPI Narrative: This is a procedure note for an elective intubation for patient that overdosed. - Related Data Home Medications Medication Instructions Recorded Confirmed Buprenorphine HCl/Naloxone HCl 1 each SL BID 10/23/16 10/24/16 [Suboxone 8 mg-2 mg Sl Film] Gabapentin [Gabapentin] 800 mg PO TID 10/23/16 10/24/16 LORazepam [Lorazepam] 2 mg PO TID PRN 10/23/16 10/24/16 Venlafaxine XR (24 HR) [Effexor XR] 150 mg PO DAILY 10/23/16 10/24/16 Allergies Allergy/AdvReac Type Severity Reaction Status Date / Time No Known Allergies Allergy Verified 05/14/15 19:35 Past Medical History - Past Medical History Medical history: Reports: migraine Surgical history: Reports: no surgical history Psychiatric history: Reports: anxiety, bipolar, depression, prior suicide attempt - Social History Smoking Status: Current every day smoker Smokeless Tobacco Status: No Alcohol use: Reports: none Drug use: Reports: prescription drug abuse Physical Exam - General Limitations: altered mental status General appearance: appears intoxicated Course Vital Signs Temperature 100.2 F H 10/24/16 14:21 Pulse Rate 65 10/24/16 14:21 Respiratory Rate 20 10/24/16 14:21 Blood Pressure 119/70 10/24/16 14:21 O2 Sat by Pulse Oximetry 96 10/24/16 14:21 Temperature 100.2 F H 10/24/16 14:21 Pulse Rate 93 10/24/16 15:49 Respiratory Rate 18 10/24/16 15:49 Blood Pressure 116/81 10/24/16 15:49 O2 Sat by Pulse Oximetry 98 10/24/16 15:49 Oxygen Delivery Oxygen Delivery Nasal Cannula Procedures - Intubation Time out performed: Yes sedative: Etomidate Mg Given: 20 paralytic: Rocuronium Mg Given: 80 Laryngoscope: fiber optic video scope ET Tube Size: 7.5 ET Tube Uncuffed: No Tube Secured Depth (cm): 23 Tube Secured Location: lips Tube Placement Confirmation: visualized tube passing through cords, equal breath sounds bilaterally, no breath sounds over epigastrium, confirmation by capnometry Patient Tolerated Procedure: well, no complications Intubation Complications: none Disposition Clinical Impression: Overdose Qualifiers: Encounter type: initial encounter Injury intent: undetermined intent Qualified Code(s): T50.904A - Poisoning by unspecified drugs, medicaments and biological substances, undetermined, initial encounter Disposition: Admitted As Inpatient Condition: Fair Time of Disposition: 17:23
--- NOTE | 2016-10-24 17:25 | Pulmonology History & Physical ---
<Bee Minor - Last Filed: 10/24/16 19:43> Date of Encounter: 10/24/16 Time of Encounter: 17:24 Assessment and Plan (1) Drug overdose, multiple drugs Current visit: No Status: Acute Patient was found down in the street somnolent by police. Taken to emergency department by EMS given Narcan with initial reversal of symptoms. Patient admits to multiple substances for attempted suicide to include gabapentin and Suboxone. Patient presented to the emergency room with hypoxia O2 sat by pulse oximetry 94 % altered level of consciousness initially rapidly reversed with Narcan however patient had persistent somnolence with decreased level of arousal and Narcan administration was no longer effective as a reversal agent. 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 Overdose: Patient is at risk for hypoxia, acute lung injury, aspiration. Imaging: No evidence of body packing. Cervical Spine CT 10/24/16 00:00 IMPRESSION: No acute abnormality of the cervical spine. Chest X-Ray 10/24/16 14:21 IMPRESSION: No acute cardiopulmonary findings. Head CT 10/24/16 14:21 IMPRESSION: No acute intracranial abnormality. Ventilatory support: Important lifesaving therapy to prevent acute lung injury: managed with supportive care and low tidal volume ventilation and PEEP. Maintain oxygen saturation at 95 - 100% Respiratory to monitor daily. Labs: ABG Imaging: Chest x-ray Continuous cardiac monitoring. Patient is at significant risk for arrhythmias given polysubstance use. Initial EKG in the emergency department: Sinus tachycardia rate of 113. QTC 358. QRS of 88. No ST segment elevations or depressions. Normal axis and intervals. No acute changes when compared to prior EKG dated 10/23/16. Repeat EKG in the morning Daily evaluation of chemistry to monitor for electrolyte abnormalities, liver function impairment or derangement due to substance abuse. Head elevation to prevent aspiration. NG tube is in place. Sedation: Precedex titrate to Iniguez scale of 5-6. Propofol titrate to Iniguez scale of 5-6. GI/fluids/electrolytes/hydration: IV hydration: Initially with MVIS to provide supportive care as well as supplements vitamins. NS boluses will be used as necessary supportively to maintain blood pressure/ hemodynamic stability. GI prophylaxis to begin tomorrow with Protonix. Renal/genitourinary: Allison catheter is in place. Daily evaluation of BUN creatinine and GFR. Heme/onc: DVT prophylaxis. Patient was placed on psychiatric hold and will need evaluation by psychiatry after extubation and prior to discharge from the hospital. Qualifiers: Encounter type: initial encounter Injury intent: intentional self-harm Qualified Code(s): T50.902A - Poisoning by unspecified drugs, medicaments and biological substances, intentional self-harm, initial encounter (2) Respiratory depression Current visit: Yes Status: Acute Secondary to drug overdose. Patient was unable to secure his own airway had loss of gag reflex and was intubated and ventilated in the emergency department. See above drug overdose for management. (3) DVT prophylaxis Current visit: No Status: Acute Heparin 5000 SQ daily History of Present Illness Chief complaint: Drug overdose HPI: Mr. Vallejo is a 26 year old male who was discharged AMA on 10/23/16 yesterday from the ICU for similar episode of drug overdose. Patient has a past medical history of IV drug abuse. Today 10/24/16 patient was found to be somnolent laying in the street and was brought by police to senior care where they determined he was too somnolent to be incarcerated. Patient reported that he overdosed on "his home medications ". EMS reported to ED that he had a bottle of Suboxone that was missing approximately 5 tablets and a bottle of gabapentin missing approximately 40 tablets. Patient confirmed this on questioning in the ED. Patient stated that he "wanted to end it all ". Patient admitted that he has attempted several times to kill himself. However, he denies hospitalization for these episodes. His plan today was to take his medications and not wake up. Patient denies: Homicidal ideation, hallucinations auditory or visual. On exam in the emergency department patient was alert and oriented 3, sitting up in bed upset regarding his current situation in life and expressing very colorfully his unhappiness with being in the hospital. Approximately 30 minutes after leaving the emergency department patient reportedly became somnolent again with no gag reflex and Suboxone was ineffective. Patient was intubated and ventilated and transferred to the ICU. Past Med Surg Social Fam HX - Past Medical History Medical history: migraine Psychiatric history: anxiety, bipolar, depression, prior suicide attempt - Past Surgical History Surgical History: no surgical history - Social History Smoking Status: Current every day smoker Smokeless Tobacco Status: No Alcohol use: none Drug use: prescription drug abuse Medications and Allergies Buprenorphine HCl/Naloxone HCl [Suboxone 8 mg-2 mg Sl Film] 1 each SL BID [History] Gabapentin [Gabapentin] 800 mg PO TID 10/23/16 [History] LORazepam [Lorazepam] 2 mg PO TID PRN 10/23/16 [History] Venlafaxine XR (24 HR) [Effexor XR] 150 mg PO DAILY 10/23/16 [History] Allergies No Known Allergies Allergy (Verified 05/14/15 19:35) ROS unobtainable: due to endotracheal tube All Systems: A 10-system review of systems was performed and is negative for pertinent findings except as documented above in the HPI. Physical Examination General appearance: no acute distress, other (Intubated and sedated) Eyes: injected (Bilateral conjunctival injection) ENT: oropharynx dry, other (Nasogastric tube is in place.) Mallampati (class): 2 Neck: supple, no lymphadenopathy, no JVD Effort: normal Inspection: normal Auscultation: bilateral: clear Cardiovascular: regular rate and rhythm Gastrointestinal: normoactive bowel sounds, non-tender, non-distended Integumentary: other (Multiple tattoos. Excoriations. Genital warts.) Extremities: pink and warm, pulses normal, other (Patient has copious amount of genital warts. Allison catheter is in place.) Musculoskeletal: no deformities pupils equal and round depressed, other (Suicidal and agitated) Results - Laboratory Findings CBC and BMP: 10/24/16 14:45 10/24/16 14:45 Abnormal lab findings: Abnormal lab results Glucose 116 mg/dL (70-99) H 10/24/16 14:45 Total Bilirubin 0.1 mg/dL (0.2-1.2) L 10/24/16 14:45 Albumin/Globulin Ratio 1.0 (1.1-2.2) L 10/24/16 14:45 Urine Blood Small (Negative) H 10/24/16 15:23 Urine Microscopic RBC 3-5 per hpf (0-3) H 10/24/16 15:23 Salicylates < 5.0 mg/dL (15-30) L 10/24/16 14:45 Acetaminophen < 1.0 mcg/mL (10-30) L 10/24/16 14:45 U Benzodiazepines Scrn Positive ng/mL (Jrxegg=991) H 10/24/16 15:23 <Jony Hernández - Last Filed: 10/24/16 22:10> Date of Encounter: 10/24/16 History of Present Illness HPI: Mr. Vallejo is a 26 year old male All Systems: A 10-system review of systems was performed and is negative for pertinent findings except as documented above in the HPI. Physical Examination Vital Signs: Vital Signs, Last 4 Hours Temp Pulse Resp BP Pulse Ox 10/24/16 21:00 87 14 107/65 95 10/24/16 20:12 98.3 F 10/24/16 20:00 88 14 109/67 93 L 10/24/16 19:38 14 110/65 92 L 10/24/16 19:17 84 14 110/65 93 L 10/24/16 18:16 94 10/24/16 18:08 14 130/83 10/24/16 18:00 98.7 F 90 15 126/90 92 L Results - Laboratory Findings CBC and BMP: 10/24/16 14:45 10/24/16 14:45 Abnormal lab findings: Abnormal lab results Glucose 116 mg/dL (70-99) H 10/24/16 14:45 POC Glucose 93 (58-89) H 10/24/16 18:01 Total Bilirubin 0.1 mg/dL (0.2-1.2) L 10/24/16 14:45 Albumin/Globulin Ratio 1.0 (1.1-2.2) L 10/24/16 14:45 Urine Blood Small (Negative) H 10/24/16 15:23 Urine Microscopic RBC 3-5 per hpf (0-3) H 10/24/16 15:23 Salicylates < 5.0 mg/dL (15-30) L 10/24/16 14:45 Acetaminophen < 1.0 mcg/mL (10-30) L 10/24/16 14:45 U Benzodiazepines Scrn Positive ng/mL (Lpissp=901) H 10/24/16 15:23 - Attending Attestation I examined this patient and my medical decision-making was reviewed with the ADOBE FLEX DEVELOPER/PA/Advanced Practice Nurse/Resident Physician. I agree with the documented findings, disposition and treatment plan as described except to the extent set forth below. Patient seen and examined initially wit the resident in the ER and he was alert and oriented and following commands, subsequently he needed to be intubated due to his mental status change and not been able to protect his airway. He responded to Narcan, but only partially. Patient has suicidal ideation and he will need psych consult before he is discharged home. Patient is on the ventilator and changed his vent setting to VC + with TV 450 and lowered RR to 14 and FIO2 45%. Patient will need ABG later. Patient needs to be monitored in ICU for now due to his overdose and could deteriorate hemodynamically. Patient to be on GI and DVT prophylaxis and sedation for vent synchrony. Critical care performed: Time is exclusive of separately billable procedures. Time includes: direct patient care, patient reassessment, coordination of patient care, interpretation of data (laboratory data, radiology data, and respiratory data), review of patient's medical records, medical consultation and documentation of patient care. Procedures excluded from critical care time: 35
[2016-10-24] MEDS ORDERED: 0.9 % Sodium Chloride 1,000 ML ONE (17:27)
[2016-10-24] MEDS ORDERED: Dexmedetomidine HCl 400 MCG/100 ML MLS IVC SCH (17:30)
[2016-10-24] MEDS: Thiamine (B-1) 100 MG, Folic Acid 1 MG, MVI, adult with vitamin K 10 ML in 0.9 % Sodi... IV SCH (18:44)
[2016-10-24 22:21] LABS: ABG Base Excess 4.1 mEq/L (-2.0 to 3.0); ABG HCO3 31.3 mEQ/L (21-27); ABG Oxygen Saturation 91 % (95-98); ABG PCO2 58 mmHg (35-45); ABG PH 7.34 pH Units (7.32-7.45); ABG PO2 64 mmHg (85-104); ABG TCO2 33.1 mEq/L (20-26); Blood Gas VT 450 cc
[2016-10-25 04:31] LABS: Basophils % 0.5 %; Eosinophils # 0.1 K/mcL (0.0-0.6); Eosinophils % 1.2 %; Hematocrit 39.4 % (37.5-50.1); Immature Granulocytes % 0.4 % (0-4); Lymphocytes # 1.7 K/mcL (0.6-4.6); Lymphocytes % 20.7 %; Mean Platelet Volume 10.3 fL (9.4-12.4); Monocytes # 0.7 K/mcL (0.0-1.3); Monocytes % 8.6 %; Neutrophils # 5.7 K/mcL (1.6-8.9); Platelet Count 195 K/mcL (140-400); Red Blood Count 4.19 M/mcL (4.19-5.50); Red Cell Distribution Width 12.9 % (11.5-14.5); Segmented Neutrophils % 68.6 %
[2016-10-25 04:44] LABS: Ionized Calcium 1.11 mmol/L (1.15-1.35)
[2016-10-25 04:52] LABS: Alanine Aminotransferase 23 Units/L (0-55); Albumin 3.2 g/dL (3.5-5.0); Alkaline Phosphatase 50 Units/L (38-126); Aspartate Amino Transferase 23 Units/L (5-34); BUN/Creatinine Ratio 14 (6-26); Bilirubin,Total 0.4 mg/dL (0.2-1.2); Blood Urea Nitrogen 10 mg/dL (8-26); Calcium 8.7 mg/dL (8.6-10.8); Carbon Dioxide 25 mEq/L (19-29); Chloride 107 mEq/L (98-109); Globulin 3.1 g/dL (2.4-3.5); Glucose 86 mg/dL (70-99); Magnesium 1.9 mg/dL (1.6-2.6); Osmolality,Calculated 288 (280-300); Phosphorous 4.7 mg/dL (2.3-4.7); Potassium 4.2 mEq/L (3.5-4.5); Sodium 140 mEq/L (136-145); Total Protein 6.3 g/dL (6.0-8.3); eGFR For African Americans > 60 (> 60); eGFR For Non-African Americans > 60 (> 60)
[2016-10-25 04:59] LABS: ABG HCO3 31.4 mEQ/L (21-27); ABG Oxygen Saturation 96 % (95-98); ABG PCO2 53 mmHg (35-45); ABG PH 7.38 pH Units (7.32-7.45); ABG PO2 81 mmHg (85-104); Blood Gas FiO2 45 %
[2016-10-25] MEDS: Thiamine (B-1) 100 MG, Folic Acid 1 MG, MVI, adult with vitamin K 10 ML in 0.9 % Sodi... IV SCH (08:07)
--- NOTE | 2016-10-25 08:17 | Pulmonology Progress Note ---
<Kaushik Dickens - Last Filed: 10/25/16 10:51> Date of Encounter: 10/25/16 Time of Encounter: 08:12 Assessment and Plan (1) Drug overdose, multiple drugs Current Visit: Yes Status: Acute Patient was brought in the [facility] ED by EMS after being found somnolent by police early yesterday evening. A decision to intubate was made in the ED due to unresponsiveness to repeat narcan despite initial reversal prior and a lack of gag reflex. Prior to intubation patient reported overdosing on his home medications and has had suicidal ideation and previous attempt the day before. EMS found suboxone and gabapentin with pill count inconsistencies from date filled. UDS was postive for benzos, labs otherwise essentially normal, ekg revealed sinus tachycardia, cxr negative, CT head and neck negative. Patient did well overnight on ventilator. Precedex was increased early this morning due to mild agitation. Patient was mildly arousable while on ventilator prior to successful intubation. Patient currently satting 93% on 2L nasal cannula. Consult to psychiatry placed due to history of anxiety, depression, bipolar, si , and sa. Sitter ordered. Consult to social media developer due to history of drug abuse, si, sa, and reported homelessness. Continue to follow labs and monitor urine output. History of Suboxone use, OARRS reviewed and appropriate, continue with Subutex sl. Qualifiers: Encounter type: subsequent encounter Injury intent: intentional self-harm Qualified Code(s): T50.902D - Poisoning by unspecified drugs, medicaments and biological substances, intentional self-harm, subsequent encounter (2) Respiratory depression Current Visit: Yes Status: Resolved Patient was successfully extubated this morning and conversing with staff and physicians. Alert and Oriented to person and time only. (3) Depression Current Visit: Yes Status: Chronic Continue Effexor home medication. Psychiatry consulted due to si/sa. Qualifiers: Depression Type: unspecified Qualified Code(s): F32.9 - Major depressive disorder, single episode, unspecified (4) Anxiety Current Visit: Yes Status: Chronic Continue Lorazepam tid prn home medication. Psychiatry consulted. (5) Tobacco abuse Current Visit: Yes Status: Chronic History of smoking >1 pack per day. Nicotine patch ordered History of Suboxone use. OARRS reviewed and appropriate. Continue with Subutex sl. (6) DVT prophylaxis Current Visit: Yes Status: Acute heparin for dvt ppx Subjective Principal diagnosis: Respiratory depression, multiple drug overdose Interval history: Patient did well overnight on ventilator. Became slightly agitated requiring increase of precedex. Patient was mildly arousable on ventilator. Patient was successfully extubated this morning and current situation was explained to the patient. Patient recalls explaining to us in the ED that he had si and sa the day before with multiple home medications. Patient reports some mild right neck pain and weakness. Alert and oriented to person and time only. Denies fevers, chills, sweats, changes in vision or hearing, nausea, vomiting, chest pain, shortness of breath, abdominal pain, and loss of sensation. Objective PUL Vital signs: Last Vital Signs Temp 97.2 F L 10/25/16 07:43 Pulse 76 10/25/16 06:00 Resp 15 10/25/16 06:27 BP 99/57 10/25/16 06:27 Pulse Ox 94 L 10/25/16 06:27 General appearance: no acute distress, alert, other (somnolent, oriented to person and time only) Eyes: nonicteric ENT: oropharynx dry Neck: supple, no lymphadenopathy, no JVD Effort: normal Auscultation: bilateral: clear Cardiovascular: regular rate and rhythm Gastrointestinal: normoactive bowel sounds, soft, non-tender, non-distended Integumentary: normal Extremities: no cyanosis, no edema, pink and warm, pulses normal Musculoskeletal: no deformities non-focal exam, pupils equal and round, CN II-XII normal, motor strength normal and symmetric mood appropriate, affect normal Ventilator Settings Ventilator Settings: Ventilator Settings, Last 8 Hours Ventilator Mode CPAP Ventilator Mode VC+ Ventilator Mode VC+ Ventilator Mode VC+ Ventilator Mode VC+ Ventilator Mode VC+ Ventilator Mode VC+ Ventilator Mode VC+ Ventilator Mode VC+ Ventilator Mode VC+ Ventilator Mode VC+ Ventilator Tidal Volume 450 Setting Ventilator Tidal Volume 450 Setting Ventilator Tidal Volume 450 Setting Ventilator Tidal Volume 450 Setting Ventilator Tidal Volume 450 Setting Ventilator Tidal Volume 450 Setting Ventilator Tidal Volume 450 Setting Ventilator Tidal Volume 450 Setting Ventilator Tidal Volume 450 Setting Ventilator Tidal Volume 450 Setting Ventilator Respiratory Rate 14 Setting Ventilator Respiratory Rate 14 Setting Ventilator Respiratory Rate 14 Setting Ventilator Respiratory Rate 14 Setting Actual Respiratory Rate 12 Actual Respiratory Rate 14 Actual Respiratory Rate 14 Actual Respiratory Rate 14 Actual Respiratory Rate 14 Actual Respiratory Rate 14 Actual Respiratory Rate 25 Actual Respiratory Rate 14 Actual Respiratory Rate 14 Actual Respiratory Rate 14 Positive End Expiratory 5 Pressure Positive End Expiratory 5 Pressure Positive End Expiratory 5 Pressure Positive End Expiratory 5 Pressure Positive End Expiratory 5 Pressure Peak Inspiratory Airway 14 Pressure Peak Inspiratory Airway 15 Pressure Peak Inspiratory Airway 15 Pressure Peak Inspiratory Airway 14 Pressure Peak Inspiratory Airway 14 Pressure Peak Inspiratory Airway 17 Pressure Peak Inspiratory Airway 16 Pressure Peak Inspiratory Airway 15 Pressure Peak Inspiratory Airway 15 Pressure Peak Inspiratory Airway 16 Pressure Results - Laboratory Findings CBC and BMP: 10/25/16 03:55 10/25/16 03:55 ABG ABG pH 7.38 pH Units (7.32-7.45) 10/25/16 04:51 ABG pCO2 53 mmHg (35-45) H 10/25/16 04:51 ABG pO2 81 mmHg (85-104) L 10/25/16 04:51 ABG O2 Saturation 96 % (95-98) 10/25/16 04:51 Abnormal lab findings: Abnormal lab results ABG pCO2 53 mmHg (35-45) H 10/25/16 04:51 ABG pO2 81 mmHg (85-104) L 10/25/16 04:51 ABG HCO3 31.4 mEQ/L (21-27) H 10/25/16 04:51 ABG Total CO2 33.0 mEq/L (20-26) H 10/25/16 04:51 ABG Base Excess 5.0 mEq/L (-2.0 to 3.0) H 10/25/16 04:51 Ionized Calcium 1.11 mmol/L (1.15-1.35) L 10/25/16 03:55 Albumin 3.2 g/dL (3.5-5.0) L 10/25/16 03:55 Albumin/Globulin Ratio 1.0 (1.1-2.2) L 10/25/16 03:55 Urine Blood Small (Negative) H 10/24/16 15:23 Urine Microscopic RBC 3-5 per hpf (0-3) H 10/24/16 15:23 Salicylates < 5.0 mg/dL (15-30) L 10/24/16 14:45 Acetaminophen < 1.0 mcg/mL (10-30) L 10/24/16 14:45 U Benzodiazepines Scrn Positive ng/mL (Xyvecp=335) H 10/24/16 15:23 - Clinical Findings Intake & Output: Intake & Output 10/24/16 10/25/16 10/25/16 23:59 07:59 15:59 Intake Total 50 / 50 639.4 / 639.4 Output Total 1250 / 1250 500 / 500 Balance -1200 / -1200 139.4 / 139.4 Weight 65.726 kg Consult Discharge Plan - Plan Referrals: Elaine Royal, TIRE MOUNTER [Primary Care Provider] - <Jony Hernández - Last Filed: 10/25/16 14:16> Date of Encounter: 10/25/16 Objective PUL Vital signs: Last Vital Signs Temp 99.3 F 10/25/16 12:37 Pulse 99 10/25/16 12:37 Resp 16 10/25/16 12:37 BP 119/68 10/25/16 12:37 Pulse Ox 90 L 10/25/16 12:37 Ventilator Settings Ventilator Settings: Ventilator Settings, Last 8 Hours Ventilator Mode CPAP Ventilator Mode CPAP Actual Respiratory Rate 12 Actual Respiratory Rate 12 Positive End Expiratory 5 Pressure Positive End Expiratory 5 Pressure Peak Inspiratory Airway 13 Pressure Peak Inspiratory Airway 14 Pressure Results - Laboratory Findings CBC and BMP: 10/25/16 03:55 10/25/16 03:55 ABG ABG pH 7.38 pH Units (7.32-7.45) 10/25/16 04:51 ABG pCO2 53 mmHg (35-45) H 10/25/16 04:51 ABG pO2 81 mmHg (85-104) L 10/25/16 04:51 ABG O2 Saturation 96 % (95-98) 10/25/16 04:51 Abnormal lab findings: Abnormal lab results ABG pCO2 53 mmHg (35-45) H 10/25/16 04:51 ABG pO2 81 mmHg (85-104) L 10/25/16 04:51 ABG HCO3 31.4 mEQ/L (21-27) H 10/25/16 04:51 ABG Total CO2 33.0 mEq/L (20-26) H 10/25/16 04:51 ABG Base Excess 5.0 mEq/L (-2.0 to 3.0) H 10/25/16 04:51 Ionized Calcium 1.11 mmol/L (1.15-1.35) L 10/25/16 03:55 Albumin 3.2 g/dL (3.5-5.0) L 10/25/16 03:55 Albumin/Globulin Ratio 1.0 (1.1-2.2) L 10/25/16 03:55 Urine Blood Small (Negative) H 10/24/16 15:23 Urine Microscopic RBC 3-5 per hpf (0-3) H 10/24/16 15:23 Salicylates < 5.0 mg/dL (15-30) L 10/24/16 14:45 Acetaminophen < 1.0 mcg/mL (10-30) L 10/24/16 14:45 U Benzodiazepines Scrn Positive ng/mL (Xgxsaw=590) H 10/24/16 15:23 - Clinical Findings Intake & Output: Intake & Output 10/24/16 10/25/16 10/25/16 23:59 07:59 15:59 Intake Total 50 / 50 691.2 / 691.2 360 / 360 Output Total 1250 / 1250 500 / 500 300 / 300 Balance -1200 / -1200 191.2 / 191.2 60 / 60 Weight 65.726 kg - Attending Attestation I examined this patient and my medical decision-making was reviewed with the BELT AND LINK ASSEMBLY SUPERVISOR/PA/Advanced Practice Nurse/Resident Physician. I agree with the documented findings, disposition and treatment plan as described except to the extent set forth below. Patient seen and examined. Labs, radiology, chart personally reviewed. 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 Pharmacy to follow up. Pulmonary: Acceptable oxygenation and ventilation and patient was extubated successfully. Cardiovascular: stable I believe prognosis is poor for this young man if he doesn't change his life style and he was told to quit taking illict drugs. Psych consult and patient to be transferred out of ICU.
[2016-10-25] MEDS ORDERED: Nicotine 21 MG PATCH.TD24 TD SCH (09:45)
[2016-10-25] MEDS ORDERED: *HR* Buprenorphine HCl 8 MG TAB.SUBL SL SCH (10:00)
[2016-10-25] MEDS ORDERED: Venlafaxine XR (24 HR) 150 MG CAP.ER.24H PO SCH (10:15)
[2016-10-25] MEDS ORDERED: *HR* LORazepam 1 MG TABLET PO PRN (10:50)
[2016-10-25] MEDS ORDERED: *HR* LORazepam 2 MG/ML VIAL IVP PRN (13:56)
[2016-10-25] MEDS ORDERED: Ondansetron 4 MG/2 ML VIAL IVP PRN (13:57)
[2016-10-25] MEDS ORDERED: Ibuprofen 600 MG TABLET PO PRN (13:57)
[2016-10-25] MEDS: Gabapentin 400 MG CAPSULE PO SCH ×2 (14:10→21:32)
[2016-10-25] MEDS: Acetaminophen 325 MG TABLET PO PRN ×2 (14:10→23:47)
[2016-10-25] MEDS ORDERED: Gabapentin 400 MG CAPSULE PO SCH (15:00)
--- NOTE | 2016-10-25 15:05 | Electrocardiograph Report ---
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
[2016-10-25] MEDS: *HR* Buprenorphine HCl 8 MG TAB.SUBL SL SCH (21:32)
[2016-10-25] MEDS: *HR* LORazepam 1 MG TABLET PO PRN (23:47)
[2016-10-25] MEDS ORDERED: Chloraseptic Spray 177 ML BOTTLE MM PRN (23:52)
[2016-10-26] MEDS: *HR* Buprenorphine HCl 8 MG TAB.SUBL SL SCH (07:42)
[2016-10-26] MEDS: *HR* LORazepam 1 MG TABLET PO PRN (07:42)
[2016-10-26] MEDS: Gabapentin 400 MG CAPSULE PO SCH (07:43)
[2016-10-26] MEDS ORDERED: Thiamine (B-1) 100 MG, Folic Acid 1 MG, MVI, adult with vitamin K 10 ML in 0.9 % Sodi... IV SCH (09:00)
[2016-10-26] MEDS ORDERED: Nicotine 21 MG PATCH.TD24 TD SCH (09:00)
[2016-10-26] MEDS ORDERED: Venlafaxine XR (24 HR) 150 MG CAP.ER.24H PO SCH (09:00)
--- NOTE | 2016-10-26 09:16 | Internal Med Progress Note ---
<Julius Patel - Last Filed: 10/26/16 11:15> Date of Encounter: 10/26/16 Time of Encounter: 09:16 - Assessment and plan (1) Suicide attempt by multiple drug overdose Status: Acute Assessment and plan: Multiple hx of drug overdose for suicidal attempt, spoke to pt this AM and he said he needs help for his depression/anxiety/suicidal idea/attempt, medically he is stable, spoke to 1A already, psych consult has been placed, plan is to transfer pt to psych unit today. Qualifiers: Qualified Code(s): T50.902A - Poisoning by unspecified drugs, medicaments and biological substances, intentional self-harm, initial encounter (2) Anxiety Status: Chronic Assessment and plan: Con't effexor and ativan prn. (3) Depression Status: Chronic Assessment and plan: Con't effexor, psych consulted. Qualifiers: Depression Type: unspecified Qualified Code(s): F32.9 - Major depressive disorder, single episode, unspecified (4) DVT prophylaxis Status: Acute Assessment and plan: Heparin SQ BID. - Subjective Interval history: Pt seen and examined, awake, able to answer questions and follow commands, no pain or complaints at this time. - Constitutional Vitals: Temp Pulse Resp BP Pulse Ox 97.9 F 70 14 106/55 97 10/26/16 07:05 10/26/16 07:05 10/26/16 07:05 10/26/16 07:05 10/26/16 07:05 General appearance: Present: cooperative, A&O X 3, no acute distress, answers questions appropriately - Head Head exam: Present: atraumatic, normocephalic - Eye Eye exam: Present: PERRL, conjuntiva pink, sclera anicteric Pupils: Present: PERRL - Neck Neck exam general surgery: Present: supple, trachea midline. Absent: lymphadenopathy - Respiratory Respiratory exam: Present: CTAB. Absent: accessory muscle use, rales, rhonchi, wheezes - Cardiovascular Cardiovascular exam: Present: RRR, +S1, +S2. Absent: diastolic murmur, gallop, rubs, systolic murmur - GI/Abdominal GI/Abdominal exam: Present: normal bowel sounds, soft, no peritoneal signs. Absent: distended, tenderness - Extremities Exam Extremities exam: Present: warm, radial pulses palpable and symetrical. Absent : calf tenderness, cyanotic, pedal edema - Neurological Exam Neurological exam: Present: CN II-XII intact, oriented X3, no focal deficits. Absent: pronater drift, facial droop, speech deficit - Skin Skin exam: Present: dry, intact Internal Medicine: Result - Labs CBC & Chem 7: 10/25/16 03:55 10/25/16 03:55 - ABG Interpretation ABG results: ABG ABG pH 7.38 pH Units (7.32-7.45) 10/25/16 04:51 ABG pCO2 53 mmHg (35-45) H 10/25/16 04:51 ABG pO2 81 mmHg (85-104) L 10/25/16 04:51 ABG O2 Saturation 96 % (95-98) 10/25/16 04:51 Consult Discharge Plan - Plan Additional Instructions: Follow-up appointments: If there is not an appointment listed below, please call your physician and schedule a follow-up appointment. If you have congestive heart failure and your symptoms return, make an appointment with your physician. Symptoms: If your condition changes or you experience any of the following symptoms, notify your physician immediately: Unusual or worsening pain, fever, persistent nausea and vomiting, bleeding, increase in swelling (especially in your legs), sudden weight gain, extreme dizziness, chest pain, increased drainage or redness from a wound or incision. Go to the emergency department if you experience a problem with breathing. Weights: If you have a history of swelling or shortness of breath, weigh yourself daily and notify your physician if you have a weight gain of two or more pounds in one day or 5 or more pounds in a week. If you experience any of the warning signs for stroke: Sudden numbness or weakness of the face, arm or leg; especially on one side of the body, sudden confusion, trouble speaking or understanding, sudden trouble seeing in one or both eyes, sudden trouble walking, dizziness, loss of balance or coordination, sudden sever headache with no cause; Call 911 or go to the emergency room. Stroke is a medical emergency. Some risk factors for stroke: Age, cigarette smoking, diabetes, excessive alcohol consumption, family history , high blood pressure, overweight, physical inactivity, prior stroke, heart attack, diagnosis of carotid artery stenosis or other artery disease. If you smoke, STOP: Smoking or tobacco use significantly increases your risk of heart and lung disease. Your chance of disease greatly increases if you continue to smoke. For more information, call the [place] tobacco quit line for smoking cessation 4-225- QUIT-NOW ( ) Referrals: Elaine Royal, DISTANCE LEARNING TECHNICIAN [Primary Care Provider] - (F/u with his PCP in a week after discharge from psych unit.) <Rajinder Laws - Last Filed: 10/26/16 17:56> Date of Encounter: 10/26/16 - Constitutional Vitals: Temp Pulse Resp BP Pulse Ox 97.9 F 80 18 108/70 92 L 10/26/16 11:28 10/26/16 11:28 10/26/16 11:28 10/26/16 11:28 10/26/16 11:28 Internal Medicine: Result - Labs CBC & Chem 7: 10/25/16 03:55 10/25/16 03:55 - ABG Interpretation ABG results: ABG ABG pH 7.38 pH Units (7.32-7.45) 10/25/16 04:51 ABG pCO2 53 mmHg (35-45) H 10/25/16 04:51 ABG pO2 81 mmHg (85-104) L 10/25/16 04:51 ABG O2 Saturation 96 % (95-98) 10/25/16 04:51 - Attending Attestation I examined this patient and my medical decision-making was reviewed with the BID MANAGER/PA/Advanced Practice Nurse/Resident Physician. I agree with the documented findings, disposition and treatment plan as described except to the extent set forth below. Mr. Vallejo was seen and examined. He is medically stable. At this point, he can be medically discharged from the unit and Continue with Management at the Inpatient Psychiatry Service. He will be discharged from the medicine service to continue with management according to psych.
[2016-10-26 11:30] VITALS: BP 108/70
--- NOTE | 2016-10-26 14:38 | Discharge Summary ---
<Julius Patel - Last Filed: 10/26/16 14:33> Date of Encounter: 10/26/16 Time of Encounter: 14:33 - Discharge Diagnosis (1) Suicide attempt by multiple drug overdose Priority: Primary Status: Acute Qualifiers: Qualified Code(s): T50.902A - Poisoning by unspecified drugs, medicaments and biological substances, intentional self-harm, initial encounter (2) Anxiety Priority: Secondary Status: Chronic (3) Depression Priority: Secondary Status: Chronic Qualifiers: Depression Type: unspecified Qualified Code(s): F32.9 - Major depressive disorder, single episode, unspecified (4) DVT prophylaxis Priority: Secondary Status: Acute - Discharge Medications Home Medications: Buprenorphine HCl/Naloxone HCl [Suboxone 8 mg-2 mg Sl Film] 1 each SL BID [History] Gabapentin 800 mg PO TID 10/23/16 [History] LORazepam [Lorazepam] 2 mg PO TID PRN 10/23/16 [History] Venlafaxine XR (24 HR) [Effexor Xr] 150 mg PO DAILY 10/23/16 [History] Allergies/Adverse Reactions: Allergies No Known Allergies Allergy (Verified 05/14/15 19:35) Procedures/tests Complete & Pending: Procedures Performed prior 72 hours Category Date Time Status EKG [ECG 12 lead ECG] [ECG] AM 0600 Y 10/25/16 06:00 Stop Req Date of admission: 10/24/16 16:29 Primary care physician: Elaine Royal CNP Consults: 10/24/16 17:31 Consult to Comptroller [CONS] Routine Reason for SW Consult: SI multiple attempts and drug abuse, living situation 10/25/16 07:50 Consult to Psychiatry [CONS] Stat Consulting Provider: [facility] [place] Reason for Consult: history of suicidal attempt and two hospitalzations si and attempts. Call Completed: No Discharging clinician: Julius Patel Anticipated date of discharge: 10/26/16 - Patient Status Disposition: Transfer Psychiatric Hosp Condition: Fair Functional capacity at discharge: independent ambulation Overall status at discharge: patient is progressing back to baseline - Discharge Instructions Follow Up With: Elaine Royal CNP [Primary Care Provider] - (F/u with his PCP in a week after discharge from psych unit.) Additional Instructions: Follow-up appointments: If there is not an appointment listed below, please call your physician and schedule a follow-up appointment. If you have congestive heart failure and your symptoms return, make an appointment with your physician. Symptoms: If your condition changes or you experience any of the following symptoms, notify your physician immediately: Unusual or worsening pain, fever, persistent nausea and vomiting, bleeding, increase in swelling (especially in your legs), sudden weight gain, extreme dizziness, chest pain, increased drainage or redness from a wound or incision. Go to the emergency department if you experience a problem with breathing. Weights: If you have a history of swelling or shortness of breath, weigh yourself daily and notify your physician if you have a weight gain of two or more pounds in one day or 5 or more pounds in a week. If you experience any of the warning signs for stroke: Sudden numbness or weakness of the face, arm or leg; especially on one side of the body, sudden confusion, trouble speaking or understanding, sudden trouble seeing in one or both eyes, sudden trouble walking, dizziness, loss of balance or coordination, sudden sever headache with no cause; Call 911 or go to the emergency room. Stroke is a medical emergency. Some risk factors for stroke: Age, cigarette smoking, diabetes, excessive alcohol consumption, family history , high blood pressure, overweight, physical inactivity, prior stroke, heart attack, diagnosis of carotid artery stenosis or other artery disease. If you smoke, STOP: Smoking or tobacco use significantly increases your risk of heart and lung disease. Your chance of disease greatly increases if you continue to smoke. For more information, call the [place] tobacco quit line for smoking cessation QUIT-NOW ( ) - Diet and Activity Activity: resume usual activities as tolerated Diet: regular diet Hospital course: Mr. Vallejo is a 26 year old male with hx of multiple suicidal attempt and depression/anxiety, admitted to the hospital for drug overdose, police found him in the street and brought him to the ER, he was having acute respiratory failure therefore intubated and sent to the ICU, he was successfully extubated and sent to the medical floor. On the next day when I saw the pt, he was A and Ox3, able to answer questions and follow commands, VS stable and labs were fine therefore psych floor was called and pt will be moved to for closer observation today. - Time Spent with Patient Total time spent providing and/or coordinating discharge services: - Constitutional Vitals: Temp Pulse Resp BP Pulse Ox 97.9 F 80 18 108/70 92 L 10/26/16 11:28 10/26/16 11:28 10/26/16 11:28 10/26/16 11:28 10/26/16 11:28 General appearance: Present: cooperative, A&O X 3, no acute distress, answers questions appropriately - Head Head exam: Present: atraumatic, normocephalic - Eye Eye exam: Present: PERRL, conjuntiva pink, sclera anicteric Pupils: Present: PERRL - Neck Neck exam general surgery: Present: supple, trachea midline. Absent: lymphadenopathy - Respiratory Respiratory exam: Present: CTAB. Absent: accessory muscle use, rales, rhonchi, wheezes - Cardiovascular Cardiovascular exam: Present: RRR, +S1, +S2. Absent: diastolic murmur, gallop, rubs, systolic murmur - GI/Abdominal GI/Abdominal exam: Present: normal bowel sounds, soft, no peritoneal signs. Absent: distended, tenderness - Extremities Exam Extremities exam: Present: warm, radial pulses palpable and symetrical. Absent : calf tenderness, cyanotic, pedal edema - Neurological Exam Neurological exam: Present: CN II-XII intact, oriented X3, no focal deficits. Absent: pronater drift, facial droop, speech deficit - Skin Skin exam: Present: dry, intact <Rajinder Laws - Last Filed: 10/26/16 17:57> Date of Encounter: 10/26/16 Procedures/tests Complete & Pending: Procedures Performed prior 72 hours Category Date Time Status EKG [ECG 12 lead ECG] [ECG] AM 0600 Y 10/25/16 06:00 Stop Req Date of admission: 10/24/16 16:29 Primary care physician: Elaine Royal CNP Consults: 10/24/16 17:31 Consult to Comptroller [CONS] Routine Reason for SW Consult: SI multiple attempts and drug abuse, living situation 10/25/16 07:50 Consult to Psychiatry [CONS] Stat Consulting Provider: Psychiatry [place] Reason for Consult: history of suicidal attempt and two hospitalzations si and attempts. Call Completed: No Hospital course: Mr. Vallejo is a 26 year old male - Time Spent with Patient Total time spent providing and/or coordinating discharge services: - Constitutional Vitals: Temp Pulse Resp BP Pulse Ox 97.9 F 80 18 108/70 92 L 10/26/16 11:28 10/26/16 11:28 10/26/16 11:28 10/26/16 11:28 10/26/16 11:28 - Attending Attestation I examined this patient and my medical decision-making was reviewed with the SU[employer]/PA/Advanced Practice Nurse/Resident Physician. I agree with the documented findings, disposition and treatment plan as described except to the extent set forth below. Mr. Vallejo was seen and examined. He is medically stable. At this point, he can be medically discharged from the unit and Continue with Management at the Inpatient Psychiatry Service. He will be discharged from the medicine service to continue with management according to psych.
[2016-10-26] MEDS ORDERED: *HR* Heparin 5,000 UNIT/ML VIAL SQ SCH (19:00)
== END 2016-10-26 14:31 | DRG 812 ==
LOC: EMEROO 14:18 → ICNU 16:29 → 3NENU 10-25 13:02
PROVIDERS: ADMIT Internal Medicine; ATTEND Internal Medicine

== ENCOUNTER 2016-10-26 14:07 | Inpatient (IN) ==
[2016-10-26] MEDS ORDERED: MOM Conc 10 ML UD.LIQ PO PRN (14:15)
[2016-10-26] MEDS ORDERED: Mag Hydrox/Al Hydrox/Simeth 30 ML UDC PO PRN (14:15)
[2016-10-26] MEDS ORDERED: Haloperidol Lactate 5 MG/ML VIAL IM PRN (14:15)
[2016-10-26] MEDS ORDERED: hydrOXYzine pamoate 25 MG CAPSULE PO PRN (14:26)
[2016-10-26] MEDS: Gabapentin 400 MG CAPSULE PO SCH ×2 (14:57→20:35)
[2016-10-26] MEDS: *HR* LORazepam 1 MG TABLET PO PRN ×2 (14:57→20:38)
[2016-10-26] MEDS: Ibuprofen 400 MG TABLET PO PRN (15:06)
[2016-10-26] MEDS ORDERED: *HR* Buprenorphine HCl 2 MG SUBLINGUAL TABLET SL SCH (17:00)
[2016-10-26] MEDS: *HR* Buprenorphine HCl 8 MG TAB.SUBL SL SCH (17:36)
[2016-10-27] MEDS: *HR* LORazepam 1 MG TABLET PO PRN ×3 (03:53→20:38)
[2016-10-27] MEDS: Gabapentin 400 MG CAPSULE PO SCH ×3 (08:19→20:38)
[2016-10-27] MEDS: Nicotine 21 MG PATCH.TD24 TD SCH (08:19)
[2016-10-27] MEDS: *HR* Buprenorphine HCl 8 MG TAB.SUBL SL SCH ×2 (08:21→16:44)
[2016-10-27] MEDS ORDERED: *HR* Buprenorphine HCl 8 MG TAB.SUBL SL SCH (09:00)
[2016-10-27] MEDS ORDERED: Venlafaxine XR (24 HR) 150 MG CAP.ER.24H PO SCH ×2 (09:00→11:34)
[2016-10-27] MEDS: Ibuprofen 400 MG TABLET PO PRN (09:55)
--- NOTE | 2016-10-27 11:30 | Psychiatry History & Physical ---
Date of Encounter: 10/27/16 Time of Encounter: 11:00 History of Present Illness Patient Stated Chief Complaint: I feel depressed and suicidal Medicare Admission Attestation: For traditional Medicare patients the provided hospital inpatient services are reasonable and necessary and in the case of services not specified as inpatient -only under 42 CFR 419.22 (n), that they are appropriately provided as inpatient services in accordance 42 CFR 412.3. For Critical Access Hospital the patient may reasonably be expected to be discharged or transferred to a hospital within 96 hours after admission to the Critical Access Hospital. Admitted From: Intrahospital Transfer Plans for Post Hospital Care: Transfer Other History of Present Illness: Mr. Vallejo is a 26 year old male who was transferred from ICU where he was admitted initially after overdosing on a bottle of NyQuil. This is patient's second overdose in the last 3 days. Patient was hospitalized with a similar overdose to ICU from where he was discharge AGAINST MEDICAL ADVICE. Patient went home and overdosed again and was readmitted. This time patient is willing to seek help for his psychiatric problem. Patient is endorsing 6-8 months history of severe depressive symptoms with low mood and anhedonia hopelessness helplessness crying weeping spells low energy levels and poor sleep and appetite and recurrent suicidal thoughts and ideations. Patient reported that he is facing overwhelming challenges in his life. He reported that he is unemployed and homeless his mother whom he was very close and that2 is suffering from 3 colon cancer. Patient reported that he has 2 children and is having strained relationships with their mother and his children. Patient reported because of the above-mentioned challenges he has been feeling extremely hopeless and suicidal and has been attending to end his life by overdosing. Since patient continued to verbalize depressive feelings and hopelessness and suicidal ideation and was unable to contract for safety was decided to transfer him to [facility] for safety concerns Past Med Surg Social Fam HX - Past Medical History Medical history: migraine - Past Psychiatric History Psychiatric history: Reports: prior suicide attempt, previous psychiatric hospitalization Past psychiatric history details: Patient has a previous suicide attempt in psychiatric treatment approximately 10 years ago. He reported that he has been struggling from depression for the last 6 months and receiving treatment from [facility]. He has been prescribed Ativan and Effexor. He was under care of Dr. Carbajal. 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 Occupational status: unemployed Current living situation: Homeless Activity Level: Independent ambulation Recent Out of Country Travel Within the Last 8 Weeks: No Exposure or Possible Exposure to Illness During Travel: No Additional social history: Patient is currently unemployed and homeless. He has 2 children ages 3 and 5 from a relationship. He is currently engaged but from his fiancee who is also the mother of the children. He denies any current legal issues Medications & Allergies Buprenorphine HCl/Naloxone HCl [Suboxone 8 mg-2 mg Sl Film] 1 each SL BID [History] Gabapentin 800 mg PO TID 10/23/16 [History] LORazepam [Lorazepam] 2 mg PO TID PRN 10/23/16 [History] Venlafaxine XR (24 HR) [Effexor Xr] 150 mg PO DAILY 10/23/16 [History] Allergies No Known Allergies Allergy (Verified 05/14/15 19:35) Review of Systems Psychiatric: Reports: depression, anxiety, abnormal sleep pattern, suicidal ideation, change in appetite, difficulty concentrating, hopelessness Mental Status Exam Patient orientation: Yes Person, Yes Time, Yes Place Level of alertness: Alert Patient appearance: Thin Behavior: anxious, tearful, restless Psychomotor activity: Normal Eye contact: Maintains Eye Contact Mood description: Depressed, Anxious Affect description: constricted, tearful, dysphoric Speech pattern: Normal rate, Normal rhythm, Normal tone Speech volume: Normal Thought process: Linear, Goal Oriented Thought content: Yes Suicidal ideation Perceptual disturbances: No Auditory hallucinations, No Visual hallucinations Attention span: Capable of Focused Attention Memory description: Grossly Intact Patient reliability: Reliable Historian Intelligence estimate: Average Judgment: Fair Insight: Partial Results - Vital Signs Vital signs: Temp Pulse Resp BP 98.6 F 63 18 119/69 10/27/16 09:00 10/27/16 09:00 10/27/16 09:00 10/27/16 09:00 Assessment and Plan (1) MDD (major depressive disorder), recurrent severe, without psychosis Current visit: Yes Status: Acute Plan: Admit inpatient for safety and stabilization, Close observation, Suicide Precautions per unit protocol, Encourage participation in unit milieu, Group Therapy, Monitor sleep, Monitor appetite Additional Plan: We will increase Effexor to 225 mg daily. We will decrease Ativan to 1 mg 3 times a day Risks, benefits, side effects, alternatives discussed w/pt: Yes Patient agreeable to treatment: Yes Plans for Post Hospital Care: Transfer Other Estimated Length of Stay (Days): 4
[2016-10-27] MEDS ORDERED: VENLAFAXINE PO SCH (11:45)
[2016-10-28] MEDS: VENLAFAXINE PO SCH (08:19)
[2016-10-28] MEDS: Gabapentin 400 MG CAPSULE PO SCH ×3 (08:19→20:53)
[2016-10-28] MEDS: Nicotine 21 MG PATCH.TD24 TD SCH (08:19)
[2016-10-28] MEDS: *HR* Buprenorphine HCl 8 MG TAB.SUBL SL SCH ×2 (08:20→16:35)
[2016-10-28] MEDS: *HR* LORazepam 1 MG TABLET PO PRN ×3 (08:23→20:53)
--- NOTE | 2016-10-28 13:04 | Psychiatry Progress Note ---
Date of Encounter: 10/28/16 Time of Encounter: 13:01 Subjective Interval history: H&P reviewed patient's follow-up. Nursing staff reported patient is med seeking , his medications are reviewed and I explained to him that the goal of treatment is to taper off benzos and opiates. Patient is concerned about his mother and her cancer, is concerned about being homeless and unemployed. Patient denied suicidal ideation, he is working on discharge plans with psych social worker. He was encouraged to participate in activities and groups. He was educated about medication. Review of Systems Psychiatric: Reports: depression, anxiety, abnormal sleep pattern, suicidal ideation, change in appetite, difficulty concentrating, hopelessness Objective: Exam Patient orientation: Yes Person, Yes Time, Yes Place Level of alertness: Alert Patient appearance: Thin Behavior: anxious, tearful, restless Psychomotor activity: Normal Eye contact: Maintains Eye Contact Mood description: Depressed, Anxious Affect description: constricted, tearful, dysphoric Speech pattern: Normal rate, Normal rhythm, Normal tone Speech volume: Normal Thought process: Linear, Goal Oriented Thought content: Yes Suicidal ideation Perceptual disturbances: No Auditory hallucinations, No Visual hallucinations Judgment: Fair Insight: Partial Results - Vital Signs Vital Signs: Temp Pulse Resp BP 98.6 F 67 16 104/68 10/28/16 08:45 10/28/16 08:45 10/28/16 08:45 10/28/16 08:45 Assessment and Plan (1) MDD (major depressive disorder), recurrent severe, without psychosis Current visit: Yes Status: Acute Plan: Continue hospitalization, Close observation, Suicide Precautions per unit protocol, Encourage participation in unit milieu, Group Therapy, Monitor sleep, Monitor appetite Risks, benefits, side effects, alternatives discussed w/pt: Yes Patient agreeable to treatment: Yes
[2016-10-29] MEDS: Nicotine 21 MG PATCH.TD24 TD SCH (08:34)
[2016-10-29] MEDS: Gabapentin 400 MG CAPSULE PO SCH ×2 (08:35→14:14)
[2016-10-29] MEDS: VENLAFAXINE PO SCH (08:35)
[2016-10-29] MEDS: *HR* Buprenorphine HCl 8 MG TAB.SUBL SL SCH (08:35)
[2016-10-29 08:49] VITALS: BP 116/68
[2016-10-29] MEDS: *HR* LORazepam 1 MG TABLET PO PRN (09:34)
--- NOTE | 2016-10-29 12:55 | Discharge Summary ---
Date of Encounter: 10/29/16 Time of Encounter: 12:42 Diagnosis - Discharge Diagnosis (1) MDD (major depressive disorder), recurrent severe, without psychosis Priority: Primary Status: Acute (2) Suicide attempt by multiple drug overdose Priority: Secondary Status: Acute Qualifiers: Qualified Code(s): T50.902A - Poisoning by unspecified drugs, medicaments and biological substances, intentional self-harm, initial encounter Medications - Discharge Medications Prescriptions: LORazepam [Lorazepam] 1 mg PO TID PRN #60 tablet PRN Reason: Anxiety Quetiapine Fumarate [Seroquel] 50 mg PO HS PRN #30 tablet PRN Reason: Insomnia Venlafaxine XR (24 HR) [Effexor Xr] 225 mg PO DAILY #30 cap.er.24h Buprenorphine HCl/Naloxone HCl [Suboxone 8 mg-2 mg Sl Film] 1 each SL BID [History] Gabapentin 800 mg PO TID 10/23/16 [History] LORazepam [Lorazepam] 1 mg PO TID PRN #60 tablet 10/29/16 [Rx] Quetiapine Fumarate [Seroquel] 50 mg PO HS PRN #30 tablet 10/29/16 [Rx] Venlafaxine XR (24 HR) [Effexor Xr] 225 mg PO DAILY #30 cap.er.24h 10/29/16 [Rx] Allergies No Known Allergies Allergy (Verified 05/14/15 19:35) Provider Date of admission: 10/26/16 14:07 Primary care physician: PCP NO Discharging clinician: Albert Elliott Assessment and Plan - Patient/Caregiver Discharge Instructions Activity: resume usual activities as tolerated Diet: regular diet Additional Instructions: Patient declines for staff to arrange follow-up at [facility], a [facility] provider , in [place], [place]. Patient believes his next appointment is 11/11/2016 and plans to attend. - Follow up Plan Follow up with: [facility] [Outside] - 10/31/16 8:30 am (The above appointment is with Jennifer Serrano, counselor at [facility]. Your first appointment will be very thorough and the total appointment time will take between two and three hours. You will be completing paperwork, meeting with a counselor and a nurse, and developing a treatment plan. You will receive follow- up appointments for on-going services , which could include counseling and community support. Please bring the following with you to your first visit to the clinic: 1) proof of household income (two consecutive pay stubs, social security award letter, bank statement , statement letter from [facility], child support statement, IRS 1040 or W2 form, or a statement from the person who financially supports you stating they help provide for your basic needs), 2) proof of residency (drivers license, a piece of mail showing your address, a statement from person you live with verifying you live at their address), 3) your social security number, and 4) your insurance card (if you have commercial insurance you must call to obtain a prior authorization number before you arrive to your first appointment). If you do not bring these items, you will not be seen.) Functional capacity at discharge: independent ambulation Overall status at discharge: Stable Disposition: Home, Self-Care Hospital Course Hospital course: Mr. Vallejo is a 26 year old male admitted to admitted to psychiatry service for evaluation treatment after an overdose in a suicide attempt. For details of the admission please see H&P On the units patient was cooperative and compliant with medication he was med seeking but redirectable. He was educated about medication and benefits and side effects. He participated in activities and groups. Prior to discharge patient was medically stable, nonsuicidal, future oriented and has more insight into his depression and substance abuse. His discharge plans 1 completed to address his mental health needs. - Time Spent with Patient Total time spent providing and/or coordinating discharge services: Quality - Multiple Antipsychotics Patient discharged on 2 or more antipsychotic medications: No Procedures - Procedures Procedures: Medication Management, Crisis Stabilization, Supportive Therapy, Group Therapy, Psychoeducational Therapy Mental Status Exam - Mental Status Exam Patient orientation: Yes Person, Yes Time, Yes Place Level of alertness: Alert Patient appearance: Thin Behavior: anxious, tearful, restless Psychomotor activity: Normal Eye contact: Maintains Eye Contact Mood description: Depressed, Anxious Affect description: constricted, tearful, dysphoric Speech pattern: Normal rate, Normal rhythm, Normal tone Speech Volume: Normal Thought process: Linear, Goal Oriented Thought Content: Yes Suicidal ideation Perceptual Disturbances: No Auditory hallucinations, No Visual hallucinations Judgment: Fair Insight: Partial
== END 2016-10-29 14:30 | disposition home or self-care (01) | DRG 751 ==
LOC: SUATTDRO 14:07 → 1ANU 14:07
PROVIDERS: ADMIT Psychiatry & Neurology Psychiatry; ATTEND Psychiatry & Neurology Psychiatry